=== PATIENT | female | born 1960 | race Caucasian/White ===

== ENCOUNTER → 2017-07-05 | Outpatient (CLI) | payer OTHER ==
[~2017-07-05] MED LIST: ACETAMINOPHEN-H1 TA2 PO; ALLERGY10 M1 PO; ALLOPURINOL300 MG PO; AMILORIDE HYDROC5 MG PO; AMITRIPTYLINE25 MG PO; ASCRIPTIN1 TA1 PO; BACTRIM DS 8001 TA1 PO; CEFAZOLIN2 GM/20 ML IV; CENTRUM SILVER1 EACH PO; CEPHALEXIN500 M1 PO; CO Q-1010 M2 PO; DOXYCYCLINE100 M3 PO; FLAGYL 500 MG500 MG PO; GLIPIZIDE ER2.5 MG PO; KEFLEX500 M1 PO; LEVAQUIN500 M1 IV; LIPITOR10 MG PO; MAREPA1200 MG PO; METFORMIN ER500 MG PO; METFORMIN1000 MG PO; METOPROLOL SUC100 M1 PO; NATURE'S BLE1000 MCG PO; TERBINAFINE250 MG; TRIAMTERENE/HCT1 TA2 PO
[2017-07-05 22:32] LABS: EST GLOM FILT AFRICAN AMERICAN > 60 ml/min
[2017-07-05 22:40] LABS: HEMOGLOBIN A1c 6.9 % (4.8-5.6)
== END | disposition home or self-care (01) ==
LOC: LAB 22:03
PROVIDERS: Podiatrist
DX: E11.40 Type 2 diabetes mellitus with diabetic neuropathy, unspecified (principal)

== ENCOUNTER → 2018-09-21 | Outpatient (CLI) | payer OTHER | END | disposition home or self-care (01) | LOC: WOUNDCARE 08:55 | DX: E11.621 Type 2 diabetes mellitus with foot ulcer (principal); L97.412 Non-pressure chronic ulcer of right heel and midfoot with fat layer exposed; L97.422 Non-pressure chronic ulcer of left heel and midfoot with fat layer exposed; L84 Corns and callosities; I10 Essential (primary) hypertension; I48.92 Unspecified atrial flutter; M10.9 Gout, unspecified; E78.00 Pure hypercholesterolemia, unspecified; Z90.710 Acquired absence of both cervix and uterus ==

== ENCOUNTER → 2018-09-28 | Outpatient (CLI) | payer OTHER | END | disposition home or self-care (01) | LOC: WOUNDCARE 04:31 | DX: E11.621 Type 2 diabetes mellitus with foot ulcer (principal); L97.412 Non-pressure chronic ulcer of right heel and midfoot with fat layer exposed; L97.422 Non-pressure chronic ulcer of left heel and midfoot with fat layer exposed; L84 Corns and callosities; I10 Essential (primary) hypertension; M10.9 Gout, unspecified; E78.00 Pure hypercholesterolemia, unspecified ==

== ENCOUNTER → 2018-10-05 | Outpatient (CLI) | payer OTHER | END | disposition home or self-care (01) | LOC: WOUNDCARE 01:50 | DX: E11.621 Type 2 diabetes mellitus with foot ulcer (principal); L97.412 Non-pressure chronic ulcer of right heel and midfoot with fat layer exposed; L97.422 Non-pressure chronic ulcer of left heel and midfoot with fat layer exposed; L84 Corns and callosities; I10 Essential (primary) hypertension; I48.92 Unspecified atrial flutter; E78.5 Hyperlipidemia, unspecified; M10.9 Gout, unspecified ==

== ENCOUNTER → 2018-10-12 | Outpatient (CLI) | payer OTHER | END | disposition home or self-care (01) | LOC: WOUNDCARE 04:10 → RESCLI 10:37 → WOUNDCARE 10:38 | DX: E11.621 Type 2 diabetes mellitus with foot ulcer (principal); L97.412 Non-pressure chronic ulcer of right heel and midfoot with fat layer exposed; L97.422 Non-pressure chronic ulcer of left heel and midfoot with fat layer exposed; L84 Corns and callosities; I10 Essential (primary) hypertension; I48.92 Unspecified atrial flutter; E78.00 Pure hypercholesterolemia, unspecified; M10.9 Gout, unspecified ==

== ENCOUNTER → 2018-10-26 | Outpatient (CLI) | payer OTHER | END | disposition home or self-care (01) | LOC: WOUNDCARE 04:43 | DX: E11.621 Type 2 diabetes mellitus with foot ulcer (principal); L97.422 Non-pressure chronic ulcer of left heel and midfoot with fat layer exposed; L97.412 Non-pressure chronic ulcer of right heel and midfoot with fat layer exposed; L84 Corns and callosities; I10 Essential (primary) hypertension; I48.92 Unspecified atrial flutter; E78.00 Pure hypercholesterolemia, unspecified; M10.9 Gout, unspecified ==

== ENCOUNTER → 2018-11-02 | Outpatient (CLI) | payer OTHER | END | disposition home or self-care (01) | LOC: WOUNDCARE 02:22 | DX: E11.621 Type 2 diabetes mellitus with foot ulcer (principal); L97.412 Non-pressure chronic ulcer of right heel and midfoot with fat layer exposed; L97.422 Non-pressure chronic ulcer of left heel and midfoot with fat layer exposed; L84 Corns and callosities; I10 Essential (primary) hypertension; I48.92 Unspecified atrial flutter; E78.00 Pure hypercholesterolemia, unspecified; M10.9 Gout, unspecified ==

== ENCOUNTER → 2018-11-09 | Outpatient (CLI) | payer OTHER | END | disposition home or self-care (01) | LOC: WOUNDCARE 02:30 | DX: E11.621 Type 2 diabetes mellitus with foot ulcer (principal); L97.422 Non-pressure chronic ulcer of left heel and midfoot with fat layer exposed; L97.412 Non-pressure chronic ulcer of right heel and midfoot with fat layer exposed; L84 Corns and callosities; I10 Essential (primary) hypertension; I48.92 Unspecified atrial flutter; E78.00 Pure hypercholesterolemia, unspecified; M10.9 Gout, unspecified ==

== ENCOUNTER → 2018-11-16 | Outpatient (CLI) | payer OTHER | END | disposition home or self-care (01) | LOC: WOUNDCARE 02:25 | DX: E11.621 Type 2 diabetes mellitus with foot ulcer (principal); L97.412 Non-pressure chronic ulcer of right heel and midfoot with fat layer exposed; L97.422 Non-pressure chronic ulcer of left heel and midfoot with fat layer exposed; L84 Corns and callosities; I10 Essential (primary) hypertension; I48.92 Unspecified atrial flutter; E78.00 Pure hypercholesterolemia, unspecified; M10.9 Gout, unspecified ==

== ENCOUNTER → 2018-11-30 | Outpatient (CLI) | payer OTHER | END | disposition home or self-care (01) | LOC: WOUNDCARE 01:44 | DX: E11.621 Type 2 diabetes mellitus with foot ulcer (principal); L97.412 Non-pressure chronic ulcer of right heel and midfoot with fat layer exposed; L97.422 Non-pressure chronic ulcer of left heel and midfoot with fat layer exposed; L84 Corns and callosities; I10 Essential (primary) hypertension; I48.92 Unspecified atrial flutter; E78.00 Pure hypercholesterolemia, unspecified; M10.9 Gout, unspecified ==

== ENCOUNTER → 2018-12-14 | Outpatient (CLI) | payer OTHER | END | disposition home or self-care (01) | LOC: WOUNDCARE 01:47 | DX: E11.621 Type 2 diabetes mellitus with foot ulcer (principal); L97.412 Non-pressure chronic ulcer of right heel and midfoot with fat layer exposed; L97.422 Non-pressure chronic ulcer of left heel and midfoot with fat layer exposed; L84 Corns and callosities; I10 Essential (primary) hypertension; I48.91 Unspecified atrial fibrillation; E78.00 Pure hypercholesterolemia, unspecified; M10.9 Gout, unspecified ==

== ENCOUNTER → 2018-12-21 | Outpatient (CLI) | payer OTHER | END | disposition home or self-care (01) | LOC: WOUNDCARE 03:01 | DX: E11.621 Type 2 diabetes mellitus with foot ulcer (principal); L97.412 Non-pressure chronic ulcer of right heel and midfoot with fat layer exposed; L97.422 Non-pressure chronic ulcer of left heel and midfoot with fat layer exposed; L84 Corns and callosities; I10 Essential (primary) hypertension; I48.92 Unspecified atrial flutter; E78.00 Pure hypercholesterolemia, unspecified; M10.9 Gout, unspecified ==

== ENCOUNTER → 2019-01-04 | Outpatient (CLI) | payer OTHER | END | disposition home or self-care (01) | LOC: WOUNDCARE 00:43 | DX: E11.621 Type 2 diabetes mellitus with foot ulcer (principal); L97.522 Non-pressure chronic ulcer of other part of left foot with fat layer exposed; I10 Essential (primary) hypertension; I48.92 Unspecified atrial flutter; M10.9 Gout, unspecified; E78.00 Pure hypercholesterolemia, unspecified ==

== ENCOUNTER → 2019-01-11 | Outpatient (CLI) | payer OTHER | END | disposition home or self-care (01) | LOC: WOUNDCARE 02:08 | DX: E11.621 Type 2 diabetes mellitus with foot ulcer (principal); L97.422 Non-pressure chronic ulcer of left heel and midfoot with fat layer exposed; L97.412 Non-pressure chronic ulcer of right heel and midfoot with fat layer exposed; M10.9 Gout, unspecified; I10 Essential (primary) hypertension; I48.92 Unspecified atrial flutter; E78.00 Pure hypercholesterolemia, unspecified ==

== ENCOUNTER → 2019-01-18 | Outpatient (CLI) | payer OTHER | END | disposition home or self-care (01) | LOC: WOUNDCARE 01:34 | DX: E11.621 Type 2 diabetes mellitus with foot ulcer (principal); L97.422 Non-pressure chronic ulcer of left heel and midfoot with fat layer exposed; L97.412 Non-pressure chronic ulcer of right heel and midfoot with fat layer exposed; I10 Essential (primary) hypertension; I48.92 Unspecified atrial flutter; E78.00 Pure hypercholesterolemia, unspecified; M10.9 Gout, unspecified ==

== ENCOUNTER → 2019-02-01 | Outpatient (CLI) | payer OTHER | END | disposition home or self-care (01) | LOC: WOUNDCARE 02:58 | DX: E11.621 Type 2 diabetes mellitus with foot ulcer (principal); L97.422 Non-pressure chronic ulcer of left heel and midfoot with fat layer exposed; L97.412 Non-pressure chronic ulcer of right heel and midfoot with fat layer exposed; M10.9 Gout, unspecified; I10 Essential (primary) hypertension; I48.92 Unspecified atrial flutter; E78.00 Pure hypercholesterolemia, unspecified ==

== ENCOUNTER → 2019-02-22 | Outpatient (CLI) | payer OTHER | END | disposition home or self-care (01) | LOC: WOUNDCARE 01:23 | DX: E11.621 Type 2 diabetes mellitus with foot ulcer (principal); L97.422 Non-pressure chronic ulcer of left heel and midfoot with fat layer exposed; L97.412 Non-pressure chronic ulcer of right heel and midfoot with fat layer exposed; L84 Corns and callosities; I10 Essential (primary) hypertension; E78.00 Pure hypercholesterolemia, unspecified; I48.91 Unspecified atrial fibrillation; M10.9 Gout, unspecified ==

== ENCOUNTER → 2019-03-15 | Outpatient (CLI) | payer OTHER | END | disposition home or self-care (01) | LOC: WOUNDCARE 03:05 | DX: E11.621 Type 2 diabetes mellitus with foot ulcer (principal); L97.422 Non-pressure chronic ulcer of left heel and midfoot with fat layer exposed; L97.522 Non-pressure chronic ulcer of other part of left foot with fat layer exposed; L97.412 Non-pressure chronic ulcer of right heel and midfoot with fat layer exposed; L84 Corns and callosities; I10 Essential (primary) hypertension; E78.00 Pure hypercholesterolemia, unspecified; M10.9 Gout, unspecified ==

== ENCOUNTER → 2019-03-22 | Outpatient (CLI) | payer OTHER | END | disposition home or self-care (01) | LOC: WOUNDCARE 01:36 | DX: E11.621 Type 2 diabetes mellitus with foot ulcer (principal); L97.412 Non-pressure chronic ulcer of right heel and midfoot with fat layer exposed; L97.422 Non-pressure chronic ulcer of left heel and midfoot with fat layer exposed; L84 Corns and callosities; I10 Essential (primary) hypertension; E78.00 Pure hypercholesterolemia, unspecified; M10.9 Gout, unspecified ==

== ENCOUNTER → 2019-04-21 | Outpatient (CLI) | payer OTHER | END | disposition home or self-care (01) | LOC: WOUNDCARE 03:00 | DX: E11.621 Type 2 diabetes mellitus with foot ulcer (principal); L97.422 Non-pressure chronic ulcer of left heel and midfoot with fat layer exposed; L97.412 Non-pressure chronic ulcer of right heel and midfoot with fat layer exposed; M10.9 Gout, unspecified; I10 Essential (primary) hypertension; I48.92 Unspecified atrial flutter; E78.00 Pure hypercholesterolemia, unspecified ==

== ENCOUNTER → 2019-04-28 | Outpatient (CLI) | payer OTHER | END | disposition home or self-care (01) | LOC: RESCLI 04-27 15:16 → WOUNDCARE 00:01 → RESCLI 15:19 | DX: E11.621 Type 2 diabetes mellitus with foot ulcer (principal); L97.522 Non-pressure chronic ulcer of other part of left foot with fat layer exposed; L97.412 Non-pressure chronic ulcer of right heel and midfoot with fat layer exposed; L97.422 Non-pressure chronic ulcer of left heel and midfoot with fat layer exposed; M10.9 Gout, unspecified; I10 Essential (primary) hypertension; I48.92 Unspecified atrial flutter; E78.00 Pure hypercholesterolemia, unspecified ==

== ENCOUNTER → 2019-05-05 | Outpatient (CLI) | payer OTHER | END | disposition home or self-care (01) | LOC: WOUNDCARE 00:15 | DX: E11.621 Type 2 diabetes mellitus with foot ulcer (principal); L97.522 Non-pressure chronic ulcer of other part of left foot with fat layer exposed; L97.422 Non-pressure chronic ulcer of left heel and midfoot with fat layer exposed; L97.412 Non-pressure chronic ulcer of right heel and midfoot with fat layer exposed; M10.9 Gout, unspecified; I10 Essential (primary) hypertension; I48.92 Unspecified atrial flutter; E78.00 Pure hypercholesterolemia, unspecified ==

== ENCOUNTER → 2020-05-13 | Outpatient (CLI) | payer OTHER | END | disposition home or self-care (01) | LOC: US 07:00 | DX: E11.621 Type 2 diabetes mellitus with foot ulcer (principal); L97.422 Non-pressure chronic ulcer of left heel and midfoot with fat layer exposed ==

== ENCOUNTER → 2020-09-18 | Outpatient (CLI) | payer OTHER | END | disposition home or self-care (01) | LOC: COVID19 10:35 | PROVIDERS: ATTEND Family Medicine | DX: R05 Cough (principal); B34.9 Viral infection, unspecified; Z20.828 Contact with and (suspected) exposure to other viral communicable diseases ==

== ENCOUNTER 2021-01-26 19:14 | Emergency (ER) | payer OTHER ==
[~2021-01-26] VITALS: Ht 170.1 cm; Wt 108.9 kg
[2021-01-26] MEDS ORDERED: NAPROXEN250 MG PO (20:03)
== END 2021-01-26 20:36 | disposition home or self-care (01) ==
LOC: ED 19:14
DX: S00.83XA Contusion of other part of head, initial encounter (principal); E11.9 Type 2 diabetes mellitus without complications; I10 Essential (primary) hypertension; E78.00 Pure hypercholesterolemia, unspecified; Z79.82 Long term (current) use of aspirin; Z91.041 Radiographic dye allergy status; Z91.048 Other nonmedicinal substance allergy status; Z79.2 Long term (current) use of antibiotics; Z79.899 Other long term (current) drug therapy; W19.XXXA Unspecified fall, initial encounter; Y93.89 Activity, other specified; Y92.89 Other specified places as the place of occurrence of the external cause; Y99.8 Other external cause status

== ENCOUNTER 2021-02-19 11:27 | Emergency (ER) | payer OTHER ==
[~2021-02-19] VITALS: Wt 108.9 kg
[~2021-02-19 11:27] MED LIST changes: +NAPROXEN250 MG PO
[2021-02-19] MEDS ORDERED: CEPHALEXIN500 M1 PO (13:53)
[2021-02-19] MEDS ORDERED: POLYSPORIN OINT15 GM T (13:53)
== END 2021-02-19 14:05 | disposition home or self-care (01) ==
LOC: ED 11:27
DX: S51.811A Laceration without foreign body of right forearm, initial encounter (principal); E11.40 Type 2 diabetes mellitus with diabetic neuropathy, unspecified; E78.5 Hyperlipidemia, unspecified; I10 Essential (primary) hypertension; E66.01 Morbid (severe) obesity due to excess calories; Z90.711 Acquired absence of uterus with remaining cervical stump; Z90.89 Acquired absence of other organs; Z91.041 Radiographic dye allergy status; Z91.048 Other nonmedicinal substance allergy status; Z79.2 Long term (current) use of antibiotics; Z79.899 Other long term (current) drug therapy; W01.198A Fall on same level from slipping, tripping and stumbling with subsequent striking against other object, initial encounter; Y93.89 Activity, other specified; Y92.89 Other specified places as the place of occurrence of the external cause; Y99.8 Other external cause status

== ENCOUNTER → 2021-03-06 | Outpatient (CLI) | payer OTHER ==
[~2021-03-06] MED LIST changes: +POLYSPORIN OINT15 GM T
== END ==
LOC: WOUNDCARE 00:31
PROVIDERS: ATTEND Nurse Practitioner
DX: E11.621 Type 2 diabetes mellitus with foot ulcer (principal); L97.422 Non-pressure chronic ulcer of left heel and midfoot with fat layer exposed; L97.522 Non-pressure chronic ulcer of other part of left foot with fat layer exposed; I10 Essential (primary) hypertension; M10.9 Gout, unspecified; I48.92 Unspecified atrial flutter; E78.00 Pure hypercholesterolemia, unspecified; Z90.710 Acquired absence of both cervix and uterus

== ENCOUNTER → 2021-05-19 | Outpatient (CLI) | payer OTHER | LOC: WOUNDCARE 01:05 | PROVIDERS: ATTEND Nurse Practitioner | DX: E11.621 Type 2 diabetes mellitus with foot ulcer (principal); L97.422 Non-pressure chronic ulcer of left heel and midfoot with fat layer exposed; L97.522 Non-pressure chronic ulcer of other part of left foot with fat layer exposed; L97.512 Non-pressure chronic ulcer of other part of right foot with fat layer exposed; I10 Essential (primary) hypertension; M10.9 Gout, unspecified; I48.92 Unspecified atrial flutter; E78.00 Pure hypercholesterolemia, unspecified; Z90.710 Acquired absence of both cervix and uterus; Z79.82 Long term (current) use of aspirin; Z79.899 Other long term (current) drug therapy; Z90.49 Acquired absence of other specified parts of digestive tract ==

== ENCOUNTER → 2021-06-30 | Outpatient (CLI) | payer OTHER | LOC: WOUNDCARE 09:04 | PROVIDERS: ATTEND Nurse Practitioner | DX: E11.621 Type 2 diabetes mellitus with foot ulcer (principal); L97.522 Non-pressure chronic ulcer of other part of left foot with fat layer exposed; L97.512 Non-pressure chronic ulcer of other part of right foot with fat layer exposed; I10 Essential (primary) hypertension; M10.9 Gout, unspecified; I48.92 Unspecified atrial flutter; E78.00 Pure hypercholesterolemia, unspecified; Z90.710 Acquired absence of both cervix and uterus; Z79.82 Long term (current) use of aspirin; Z79.899 Other long term (current) drug therapy; Z90.49 Acquired absence of other specified parts of digestive tract ==

== ENCOUNTER → 2021-07-11 | Outpatient (CLI) | payer OTHER | LOC: WOUNDCARE 00:44 | PROVIDERS: ATTEND Nurse Practitioner | DX: E11.621 Type 2 diabetes mellitus with foot ulcer (principal); L97.522 Non-pressure chronic ulcer of other part of left foot with fat layer exposed; L97.512 Non-pressure chronic ulcer of other part of right foot with fat layer exposed; I10 Essential (primary) hypertension; M10.9 Gout, unspecified; I48.92 Unspecified atrial flutter; E78.00 Pure hypercholesterolemia, unspecified; Z90.710 Acquired absence of both cervix and uterus; Z79.82 Long term (current) use of aspirin; Z79.899 Other long term (current) drug therapy; Z90.49 Acquired absence of other specified parts of digestive tract ==

== ENCOUNTER → 2021-07-25 | Outpatient (CLI) | payer OTHER | LOC: WOUNDCARE 02:46 | PROVIDERS: ATTEND Nurse Practitioner | DX: E11.621 Type 2 diabetes mellitus with foot ulcer (principal); L97.522 Non-pressure chronic ulcer of other part of left foot with fat layer exposed; L97.512 Non-pressure chronic ulcer of other part of right foot with fat layer exposed; I10 Essential (primary) hypertension; M10.9 Gout, unspecified; E78.00 Pure hypercholesterolemia, unspecified; Z90.710 Acquired absence of both cervix and uterus; Z79.82 Long term (current) use of aspirin; Z79.899 Other long term (current) drug therapy; Z90.49 Acquired absence of other specified parts of digestive tract ==

== ENCOUNTER → 2021-08-11 | Outpatient (CLI) | payer OTHER | LOC: WOUNDCARE 11:01 | PROVIDERS: ATTEND Nurse Practitioner | DX: E11.621 Type 2 diabetes mellitus with foot ulcer (principal); L97.522 Non-pressure chronic ulcer of other part of left foot with fat layer exposed; L97.512 Non-pressure chronic ulcer of other part of right foot with fat layer exposed; I10 Essential (primary) hypertension; M10.9 Gout, unspecified; E78.00 Pure hypercholesterolemia, unspecified; Z90.710 Acquired absence of both cervix and uterus; Z79.82 Long term (current) use of aspirin; Z79.899 Other long term (current) drug therapy; Z90.49 Acquired absence of other specified parts of digestive tract ==

== ENCOUNTER → 2021-10-10 | Outpatient (CLI) | payer OTHER | LOC: WOUNDCARE 00:01 → EDSTATUS 16:43 | PROVIDERS: ATTEND Nurse Practitioner Family | DX: E11.621 Type 2 diabetes mellitus with foot ulcer (principal); L97.511 Non-pressure chronic ulcer of other part of right foot limited to breakdown of skin; L97.521 Non-pressure chronic ulcer of other part of left foot limited to breakdown of skin; I10 Essential (primary) hypertension; M10.9 Gout, unspecified; E78.00 Pure hypercholesterolemia, unspecified; Z90.710 Acquired absence of both cervix and uterus; Z79.82 Long term (current) use of aspirin; Z79.899 Other long term (current) drug therapy; Z90.49 Acquired absence of other specified parts of digestive tract; Z79.84 Long term (current) use of oral hypoglycemic drugs ==

== ENCOUNTER → 2021-10-17 | Outpatient (CLI) | payer OTHER | LOC: WOUNDCARE 00:51 | PROVIDERS: ATTEND Nurse Practitioner Family | DX: E11.621 Type 2 diabetes mellitus with foot ulcer (principal); L97.522 Non-pressure chronic ulcer of other part of left foot with fat layer exposed; L97.512 Non-pressure chronic ulcer of other part of right foot with fat layer exposed; I10 Essential (primary) hypertension; M10.9 Gout, unspecified; E78.00 Pure hypercholesterolemia, unspecified; Z90.710 Acquired absence of both cervix and uterus; Z79.82 Long term (current) use of aspirin; Z79.899 Other long term (current) drug therapy; Z90.49 Acquired absence of other specified parts of digestive tract ==

== ENCOUNTER → 2021-10-28 | Outpatient (CLI) | payer OTHER | LOC: WOUNDCARE 00:48 | PROVIDERS: ATTEND Surgery | DX: E11.621 Type 2 diabetes mellitus with foot ulcer (principal); L97.512 Non-pressure chronic ulcer of other part of right foot with fat layer exposed; L97.522 Non-pressure chronic ulcer of other part of left foot with fat layer exposed; L84 Corns and callosities; M10.9 Gout, unspecified; E78.00 Pure hypercholesterolemia, unspecified; Z90.710 Acquired absence of both cervix and uterus; Z79.82 Long term (current) use of aspirin; Z79.899 Other long term (current) drug therapy; Z90.49 Acquired absence of other specified parts of digestive tract ==

== ENCOUNTER → 2021-11-07 | Outpatient (CLI) | payer OTHER | LOC: WOUNDCARE 00:52 | PROVIDERS: ATTEND Nurse Practitioner Family | DX: E11.621 Type 2 diabetes mellitus with foot ulcer (principal); L97.511 Non-pressure chronic ulcer of other part of right foot limited to breakdown of skin; L97.521 Non-pressure chronic ulcer of other part of left foot limited to breakdown of skin; L84 Corns and callosities; M79.2 Neuralgia and neuritis, unspecified; M10.9 Gout, unspecified; E78.00 Pure hypercholesterolemia, unspecified; Z90.710 Acquired absence of both cervix and uterus; Z79.82 Long term (current) use of aspirin; Z79.899 Other long term (current) drug therapy; Z90.49 Acquired absence of other specified parts of digestive tract ==

== ENCOUNTER → 2021-11-14 | Outpatient (CLI) | payer OTHER | LOC: WOUNDCARE 00:57 | PROVIDERS: ATTEND Nurse Practitioner Family | DX: E11.621 Type 2 diabetes mellitus with foot ulcer (principal); L97.511 Non-pressure chronic ulcer of other part of right foot limited to breakdown of skin; L97.521 Non-pressure chronic ulcer of other part of left foot limited to breakdown of skin; L84 Corns and callosities; M79.2 Neuralgia and neuritis, unspecified; M10.9 Gout, unspecified; E78.00 Pure hypercholesterolemia, unspecified; Z90.710 Acquired absence of both cervix and uterus; Z79.82 Long term (current) use of aspirin; Z79.899 Other long term (current) drug therapy; Z90.49 Acquired absence of other specified parts of digestive tract ==

== ENCOUNTER → 2021-11-26 | Outpatient (CLI) | payer OTHER | LOC: WOUNDCARE 10:55 | PROVIDERS: ATTEND Nurse Practitioner Family | DX: E11.621 Type 2 diabetes mellitus with foot ulcer (principal); L97.512 Non-pressure chronic ulcer of other part of right foot with fat layer exposed; L97.522 Non-pressure chronic ulcer of other part of left foot with fat layer exposed; L84 Corns and callosities; M79.2 Neuralgia and neuritis, unspecified; M10.9 Gout, unspecified; E78.00 Pure hypercholesterolemia, unspecified; Z90.710 Acquired absence of both cervix and uterus; Z79.82 Long term (current) use of aspirin; Z79.899 Other long term (current) drug therapy; Z90.49 Acquired absence of other specified parts of digestive tract ==

== ENCOUNTER → 2021-12-05 | Outpatient (CLI) | payer OTHER | LOC: WOUNDCARE 06:10 | PROVIDERS: ATTEND Nurse Practitioner Family | DX: E11.621 Type 2 diabetes mellitus with foot ulcer (principal); L97.512 Non-pressure chronic ulcer of other part of right foot with fat layer exposed; L97.522 Non-pressure chronic ulcer of other part of left foot with fat layer exposed; L03.032 Cellulitis of left toe; L84 Corns and callosities; E78.00 Pure hypercholesterolemia, unspecified; I10 Essential (primary) hypertension; M79.2 Neuralgia and neuritis, unspecified; M10.9 Gout, unspecified; Z90.710 Acquired absence of both cervix and uterus ==

== ENCOUNTER → 2021-12-07 | Outpatient (CLI) | payer OTHER | END | disposition home or self-care (01) | LOC: RAD 17:06 | PROVIDERS: ATTEND Nurse Practitioner Family | DX: M19.072 Primary osteoarthritis, left ankle and foot (principal); L97.522 Non-pressure chronic ulcer of other part of left foot with fat layer exposed; L03.032 Cellulitis of left toe; M86.9 Osteomyelitis, unspecified ==

== ENCOUNTER → 2021-12-12 | Outpatient (CLI) | payer OTHER | LOC: WOUNDCARE 02:22 | PROVIDERS: ATTEND Nurse Practitioner Family | DX: E11.621 Type 2 diabetes mellitus with foot ulcer (principal); L97.512 Non-pressure chronic ulcer of other part of right foot with fat layer exposed; L97.522 Non-pressure chronic ulcer of other part of left foot with fat layer exposed; L03.032 Cellulitis of left toe; L84 Corns and callosities; E78.00 Pure hypercholesterolemia, unspecified; I10 Essential (primary) hypertension; M79.2 Neuralgia and neuritis, unspecified; M10.9 Gout, unspecified; Z90.710 Acquired absence of both cervix and uterus ==

== ENCOUNTER → 2021-12-16 | Outpatient (CLI) | payer OTHER | LOC: WOUNDCARE 00:01 | PROVIDERS: ATTEND Surgery | DX: E11.621 Type 2 diabetes mellitus with foot ulcer (principal); L97.512 Non-pressure chronic ulcer of other part of right foot with fat layer exposed; L97.522 Non-pressure chronic ulcer of other part of left foot with fat layer exposed; L03.032 Cellulitis of left toe; L84 Corns and callosities; E78.00 Pure hypercholesterolemia, unspecified; I10 Essential (primary) hypertension; M79.2 Neuralgia and neuritis, unspecified; M10.9 Gout, unspecified; Z90.710 Acquired absence of both cervix and uterus ==

== ENCOUNTER → 2021-12-26 | Outpatient (CLI) | payer OTHER | LOC: WOUNDCARE 00:44 | PROVIDERS: ATTEND Nurse Practitioner Family | DX: E11.621 Type 2 diabetes mellitus with foot ulcer (principal); L97.512 Non-pressure chronic ulcer of other part of right foot with fat layer exposed; L97.522 Non-pressure chronic ulcer of other part of left foot with fat layer exposed; L03.032 Cellulitis of left toe; L84 Corns and callosities; E78.00 Pure hypercholesterolemia, unspecified; I10 Essential (primary) hypertension; M79.2 Neuralgia and neuritis, unspecified; M10.9 Gout, unspecified ==

== ENCOUNTER → 2022-01-07 | Outpatient (CLI) | payer OTHER | LOC: WOUNDCARE 01:03 | PROVIDERS: ATTEND Nurse Practitioner Family | DX: E11.621 Type 2 diabetes mellitus with foot ulcer (principal); L97.512 Non-pressure chronic ulcer of other part of right foot with fat layer exposed; L97.522 Non-pressure chronic ulcer of other part of left foot with fat layer exposed; L03.032 Cellulitis of left toe; L84 Corns and callosities; E78.00 Pure hypercholesterolemia, unspecified; I10 Essential (primary) hypertension; M79.2 Neuralgia and neuritis, unspecified; M10.9 Gout, unspecified ==

== ENCOUNTER → 2022-01-20 | Outpatient (CLI) | payer OTHER | LOC: WOUNDCARE 01:54 | PROVIDERS: ATTEND Nurse Practitioner Primary Care | DX: E11.621 Type 2 diabetes mellitus with foot ulcer (principal); L97.522 Non-pressure chronic ulcer of other part of left foot with fat layer exposed; L97.512 Non-pressure chronic ulcer of other part of right foot with fat layer exposed; L03.032 Cellulitis of left toe; L84 Corns and callosities; E78.00 Pure hypercholesterolemia, unspecified; I10 Essential (primary) hypertension; M79.2 Neuralgia and neuritis, unspecified; M10.9 Gout, unspecified; Z90.710 Acquired absence of both cervix and uterus ==

== ENCOUNTER → 2022-01-30 | Outpatient (CLI) | payer OTHER ==
[~2022-01-30] MED LIST changes: +ASPIRIN ADULT L81 M1 PO; +FLONASE ALLERG9.9 ML NAS
== END ==
LOC: WOUNDCARE 03:27
PROVIDERS: ATTEND Nurse Practitioner Family
DX: E11.621 Type 2 diabetes mellitus with foot ulcer (principal); L97.522 Non-pressure chronic ulcer of other part of left foot with fat layer exposed; L97.512 Non-pressure chronic ulcer of other part of right foot with fat layer exposed; L03.032 Cellulitis of left toe; L84 Corns and callosities; M86.18 Other acute osteomyelitis, other site; E78.00 Pure hypercholesterolemia, unspecified; I10 Essential (primary) hypertension; M79.2 Neuralgia and neuritis, unspecified; M10.9 Gout, unspecified; Z90.710 Acquired absence of both cervix and uterus

== ENCOUNTER → 2022-02-12 | Outpatient (CLI) | payer OTHER | LOC: WOUNDCARE 00:47 | PROVIDERS: ATTEND Nurse Practitioner Family | DX: E11.621 Type 2 diabetes mellitus with foot ulcer (principal); L97.512 Non-pressure chronic ulcer of other part of right foot with fat layer exposed; L97.522 Non-pressure chronic ulcer of other part of left foot with fat layer exposed; L03.032 Cellulitis of left toe; L84 Corns and callosities; E78.00 Pure hypercholesterolemia, unspecified; I10 Essential (primary) hypertension; M79.2 Neuralgia and neuritis, unspecified; M86.18 Other acute osteomyelitis, other site; M10.9 Gout, unspecified; Z90.710 Acquired absence of both cervix and uterus ==

== ENCOUNTER → 2022-02-27 | Outpatient (CLI) | payer OTHER ==
[2022-02-27 10:58] LABS: BUN 10 mg/dl (7-24); CHLORIDE 109 mmol/L (98-107); CREATININE 0.68 mg/dL (0.55-1.02); PREALBUMIN 26 mg/dl (20-40); SODIUM 141 mmol/L (136-145)
== END | disposition home or self-care (01) ==
LOC: WOUNDCARE 03:53 → LAB 03:53 → WOUNDCARE 08:32
PROVIDERS: ATTEND Nurse Practitioner Family
DX: E11.621 Type 2 diabetes mellitus with foot ulcer (principal); L97.512 Non-pressure chronic ulcer of other part of right foot with fat layer exposed; L97.522 Non-pressure chronic ulcer of other part of left foot with fat layer exposed

== ENCOUNTER → 2022-03-05 | Outpatient (CLI) | payer OTHER | END | disposition home or self-care (01) | LOC: WOUNDCARE 02:27 | PROVIDERS: ATTEND Nurse Practitioner Family | DX: E11.621 Type 2 diabetes mellitus with foot ulcer (principal); L97.512 Non-pressure chronic ulcer of other part of right foot with fat layer exposed; L97.522 Non-pressure chronic ulcer of other part of left foot with fat layer exposed; L03.032 Cellulitis of left toe; L84 Corns and callosities; E11.69 Type 2 diabetes mellitus with other specified complication; M86.18 Other acute osteomyelitis, other site; E78.00 Pure hypercholesterolemia, unspecified; I10 Essential (primary) hypertension; M79.2 Neuralgia and neuritis, unspecified; M10.9 Gout, unspecified; Z90.710 Acquired absence of both cervix and uterus ==

== ENCOUNTER → 2022-03-12 | Outpatient (CLI) | payer OTHER | END | disposition home or self-care (01) | LOC: WOUNDCARE 01:05 | PROVIDERS: ATTEND Nurse Practitioner Family | DX: E11.621 Type 2 diabetes mellitus with foot ulcer (principal); L97.522 Non-pressure chronic ulcer of other part of left foot with fat layer exposed; L97.512 Non-pressure chronic ulcer of other part of right foot with fat layer exposed; L03.032 Cellulitis of left toe; L84 Corns and callosities; E11.69 Type 2 diabetes mellitus with other specified complication; M86.18 Other acute osteomyelitis, other site; M79.2 Neuralgia and neuritis, unspecified; M10.9 Gout, unspecified; E78.00 Pure hypercholesterolemia, unspecified; I10 Essential (primary) hypertension; Z90.710 Acquired absence of both cervix and uterus ==

== ENCOUNTER → 2022-03-19 | Outpatient (CLI) | payer OTHER | END | disposition home or self-care (01) | LOC: WOUNDCARE 00:22 | PROVIDERS: ATTEND Nurse Practitioner Family | DX: E11.621 Type 2 diabetes mellitus with foot ulcer (principal); L97.522 Non-pressure chronic ulcer of other part of left foot with fat layer exposed; L97.512 Non-pressure chronic ulcer of other part of right foot with fat layer exposed; L84 Corns and callosities; L03.032 Cellulitis of left toe; M79.2 Neuralgia and neuritis, unspecified; E11.69 Type 2 diabetes mellitus with other specified complication; M86.18 Other acute osteomyelitis, other site; E78.00 Pure hypercholesterolemia, unspecified; I10 Essential (primary) hypertension; M10.9 Gout, unspecified; Z90.710 Acquired absence of both cervix and uterus ==

== ENCOUNTER → 2022-03-26 | Outpatient (CLI) | payer OTHER | END | disposition home or self-care (01) | LOC: WOUNDCARE 00:19 | PROVIDERS: ATTEND Nurse Practitioner Family | DX: E11.621 Type 2 diabetes mellitus with foot ulcer (principal); L97.522 Non-pressure chronic ulcer of other part of left foot with fat layer exposed; L84 Corns and callosities; E11.69 Type 2 diabetes mellitus with other specified complication; M86.18 Other acute osteomyelitis, other site; E78.00 Pure hypercholesterolemia, unspecified; I10 Essential (primary) hypertension; M79.2 Neuralgia and neuritis, unspecified; M10.9 Gout, unspecified; Z90.710 Acquired absence of both cervix and uterus ==

== ENCOUNTER → 2022-04-02 | Outpatient (CLI) | payer OTHER | END | disposition home or self-care (01) | LOC: WOUNDCARE 00:12 | PROVIDERS: ATTEND Nurse Practitioner Family | DX: E11.621 Type 2 diabetes mellitus with foot ulcer (principal); L97.522 Non-pressure chronic ulcer of other part of left foot with fat layer exposed; L84 Corns and callosities; E11.69 Type 2 diabetes mellitus with other specified complication; M86.18 Other acute osteomyelitis, other site; E78.00 Pure hypercholesterolemia, unspecified; I10 Essential (primary) hypertension; M79.2 Neuralgia and neuritis, unspecified; M10.9 Gout, unspecified; Z90.710 Acquired absence of both cervix and uterus ==

== ENCOUNTER → 2022-04-09 | Outpatient (CLI) | payer OTHER | END | disposition home or self-care (01) | LOC: WOUNDCARE 01:11 | PROVIDERS: ATTEND Nurse Practitioner Family | DX: E11.621 Type 2 diabetes mellitus with foot ulcer (principal); L97.522 Non-pressure chronic ulcer of other part of left foot with fat layer exposed; L84 Corns and callosities; M79.2 Neuralgia and neuritis, unspecified; E11.69 Type 2 diabetes mellitus with other specified complication; M86.18 Other acute osteomyelitis, other site; E78.00 Pure hypercholesterolemia, unspecified; I10 Essential (primary) hypertension; M10.9 Gout, unspecified; Z90.710 Acquired absence of both cervix and uterus ==

== ENCOUNTER → 2022-04-23 | Outpatient (CLI) | payer OTHER | LOC: WOUNDCARE 01:52 | PROVIDERS: ATTEND Nurse Practitioner Family | DX: E11.621 Type 2 diabetes mellitus with foot ulcer (principal); L97.522 Non-pressure chronic ulcer of other part of left foot with fat layer exposed; L84 Corns and callosities; E11.69 Type 2 diabetes mellitus with other specified complication; M86.18 Other acute osteomyelitis, other site; E78.00 Pure hypercholesterolemia, unspecified; I10 Essential (primary) hypertension; M79.2 Neuralgia and neuritis, unspecified; M10.9 Gout, unspecified; Z90.710 Acquired absence of both cervix and uterus ==

== ENCOUNTER → 2022-04-30 | Outpatient (CLI) | payer OTHER | END | disposition home or self-care (01) | LOC: WOUNDCARE 03:25 | PROVIDERS: ATTEND Nurse Practitioner Family | DX: E11.621 Type 2 diabetes mellitus with foot ulcer (principal); L97.522 Non-pressure chronic ulcer of other part of left foot with fat layer exposed; E11.69 Type 2 diabetes mellitus with other specified complication; M86.18 Other acute osteomyelitis, other site; E78.00 Pure hypercholesterolemia, unspecified; I10 Essential (primary) hypertension; M79.2 Neuralgia and neuritis, unspecified; M10.9 Gout, unspecified; Z90.710 Acquired absence of both cervix and uterus ==

== ENCOUNTER → 2022-05-07 | Outpatient (CLI) | payer OTHER | END | disposition home or self-care (01) | LOC: WOUNDCARE 01:46 | PROVIDERS: ATTEND Nurse Practitioner Family | DX: E11.621 Type 2 diabetes mellitus with foot ulcer (principal); L97.522 Non-pressure chronic ulcer of other part of left foot with fat layer exposed; L84 Corns and callosities; E11.69 Type 2 diabetes mellitus with other specified complication; M86.18 Other acute osteomyelitis, other site; E78.00 Pure hypercholesterolemia, unspecified; I10 Essential (primary) hypertension; M79.2 Neuralgia and neuritis, unspecified; M10.9 Gout, unspecified; Z90.710 Acquired absence of both cervix and uterus ==

== ENCOUNTER → 2022-05-14 | Outpatient (CLI) | payer OTHER | END | disposition home or self-care (01) | LOC: WOUNDCARE 01:46 | PROVIDERS: ATTEND Nurse Practitioner Family | DX: E11.621 Type 2 diabetes mellitus with foot ulcer (principal); L97.522 Non-pressure chronic ulcer of other part of left foot with fat layer exposed; L84 Corns and callosities; E11.69 Type 2 diabetes mellitus with other specified complication; M86.18 Other acute osteomyelitis, other site; M79.2 Neuralgia and neuritis, unspecified; M10.9 Gout, unspecified; I10 Essential (primary) hypertension; E78.00 Pure hypercholesterolemia, unspecified; Z90.710 Acquired absence of both cervix and uterus ==

== ENCOUNTER → 2022-05-21 | Outpatient (CLI) | payer OTHER | LOC: WOUNDCARE 02:56 | PROVIDERS: ATTEND Nurse Practitioner Family | DX: E11.621 Type 2 diabetes mellitus with foot ulcer (principal); L97.522 Non-pressure chronic ulcer of other part of left foot with fat layer exposed; L84 Corns and callosities; E11.69 Type 2 diabetes mellitus with other specified complication; M86.18 Other acute osteomyelitis, other site; E78.00 Pure hypercholesterolemia, unspecified; I10 Essential (primary) hypertension; M79.2 Neuralgia and neuritis, unspecified; M10.9 Gout, unspecified; Z90.710 Acquired absence of both cervix and uterus ==

== ENCOUNTER → 2022-06-05 | Outpatient (CLI) | payer OTHER | END | disposition home or self-care (01) | LOC: WOUNDCARE 01:57 | PROVIDERS: ATTEND Nurse Practitioner Family | DX: E11.621 Type 2 diabetes mellitus with foot ulcer (principal); L97.522 Non-pressure chronic ulcer of other part of left foot with fat layer exposed; E11.69 Type 2 diabetes mellitus with other specified complication; M86.18 Other acute osteomyelitis, other site; L84 Corns and callosities; M79.2 Neuralgia and neuritis, unspecified; M10.9 Gout, unspecified; E78.00 Pure hypercholesterolemia, unspecified; I10 Essential (primary) hypertension; Z90.710 Acquired absence of both cervix and uterus ==

== ENCOUNTER → 2022-06-12 | Outpatient (CLI) | payer OTHER | END | disposition home or self-care (01) | LOC: WOUNDCARE 01:29 | PROVIDERS: ATTEND Nurse Practitioner Family | DX: E11.621 Type 2 diabetes mellitus with foot ulcer (principal); L97.522 Non-pressure chronic ulcer of other part of left foot with fat layer exposed; E11.69 Type 2 diabetes mellitus with other specified complication; M86.18 Other acute osteomyelitis, other site; L84 Corns and callosities; M79.2 Neuralgia and neuritis, unspecified; M10.9 Gout, unspecified; E78.00 Pure hypercholesterolemia, unspecified; I10 Essential (primary) hypertension; Z90.710 Acquired absence of both cervix and uterus ==

== ENCOUNTER → 2022-06-24 | Outpatient (CLI) | payer OTHER | END | disposition home or self-care (01) | LOC: WOUNDCARE 01:23 | PROVIDERS: ATTEND Nurse Practitioner Family | DX: E11.621 Type 2 diabetes mellitus with foot ulcer (principal); L97.522 Non-pressure chronic ulcer of other part of left foot with fat layer exposed; E11.69 Type 2 diabetes mellitus with other specified complication; M86.18 Other acute osteomyelitis, other site; E78.00 Pure hypercholesterolemia, unspecified; I10 Essential (primary) hypertension; M79.2 Neuralgia and neuritis, unspecified; M10.9 Gout, unspecified; Z90.710 Acquired absence of both cervix and uterus ==

== ENCOUNTER → 2022-07-03 | Outpatient (CLI) | payer OTHER | END | disposition home or self-care (01) | LOC: WOUNDCARE 00:42 | PROVIDERS: ATTEND Nurse Practitioner Family | DX: E11.621 Type 2 diabetes mellitus with foot ulcer (principal); L97.522 Non-pressure chronic ulcer of other part of left foot with fat layer exposed; E11.69 Type 2 diabetes mellitus with other specified complication; M86.18 Other acute osteomyelitis, other site; E78.00 Pure hypercholesterolemia, unspecified; I10 Essential (primary) hypertension; M79.2 Neuralgia and neuritis, unspecified; M10.9 Gout, unspecified; Z90.710 Acquired absence of both cervix and uterus ==

== ENCOUNTER → 2022-07-09 | Outpatient (CLI) | payer OTHER | END | disposition home or self-care (01) | LOC: WOUNDCARE 01:42 | PROVIDERS: ATTEND Nurse Practitioner Family | DX: E11.621 Type 2 diabetes mellitus with foot ulcer (principal); L97.522 Non-pressure chronic ulcer of other part of left foot with fat layer exposed; L84 Corns and callosities; E11.69 Type 2 diabetes mellitus with other specified complication; M86.18 Other acute osteomyelitis, other site; E78.00 Pure hypercholesterolemia, unspecified; I10 Essential (primary) hypertension; M79.2 Neuralgia and neuritis, unspecified; M10.9 Gout, unspecified; Z90.710 Acquired absence of both cervix and uterus ==

== ENCOUNTER → 2022-07-16 | Outpatient (CLI) | payer OTHER | END | disposition home or self-care (01) | LOC: WOUNDCARE 01:00 | PROVIDERS: ATTEND Nurse Practitioner Family | DX: E11.621 Type 2 diabetes mellitus with foot ulcer (principal); L97.522 Non-pressure chronic ulcer of other part of left foot with fat layer exposed; L84 Corns and callosities; M79.2 Neuralgia and neuritis, unspecified; E11.69 Type 2 diabetes mellitus with other specified complication; M86.18 Other acute osteomyelitis, other site; E78.00 Pure hypercholesterolemia, unspecified; I10 Essential (primary) hypertension; M10.9 Gout, unspecified; Z90.710 Acquired absence of both cervix and uterus ==

== ENCOUNTER → 2022-07-23 | Outpatient (CLI) | payer OTHER | END | disposition home or self-care (01) | LOC: WOUNDCARE 00:22 | PROVIDERS: ATTEND Nurse Practitioner Family | DX: E11.621 Type 2 diabetes mellitus with foot ulcer (principal); L97.522 Non-pressure chronic ulcer of other part of left foot with fat layer exposed; L84 Corns and callosities; E11.69 Type 2 diabetes mellitus with other specified complication; M86.18 Other acute osteomyelitis, other site; E78.00 Pure hypercholesterolemia, unspecified; I10 Essential (primary) hypertension; M79.2 Neuralgia and neuritis, unspecified; M10.9 Gout, unspecified; Z90.710 Acquired absence of both cervix and uterus ==

== ENCOUNTER → 2022-07-30 | Outpatient (CLI) | payer OTHER | END | disposition home or self-care (01) | LOC: WOUNDCARE 00:55 | PROVIDERS: ATTEND Nurse Practitioner Family | DX: E11.621 Type 2 diabetes mellitus with foot ulcer (principal); L97.522 Non-pressure chronic ulcer of other part of left foot with fat layer exposed; L84 Corns and callosities; E11.69 Type 2 diabetes mellitus with other specified complication; M86.18 Other acute osteomyelitis, other site; M79.2 Neuralgia and neuritis, unspecified; M10.9 Gout, unspecified; E78.00 Pure hypercholesterolemia, unspecified; I10 Essential (primary) hypertension; Z90.710 Acquired absence of both cervix and uterus ==

== ENCOUNTER → 2022-08-14 | Outpatient (CLI) | payer OTHER | LOC: WOUNDCARE 07:16 | PROVIDERS: ATTEND Nurse Practitioner Family | DX: E11.621 Type 2 diabetes mellitus with foot ulcer (principal); L97.522 Non-pressure chronic ulcer of other part of left foot with fat layer exposed; L84 Corns and callosities; E11.69 Type 2 diabetes mellitus with other specified complication; M86.18 Other acute osteomyelitis, other site; E78.00 Pure hypercholesterolemia, unspecified; I10 Essential (primary) hypertension; M79.2 Neuralgia and neuritis, unspecified; M10.9 Gout, unspecified; Z90.710 Acquired absence of both cervix and uterus ==

== ENCOUNTER → 2022-08-21 | Outpatient (CLI) | payer OTHER | END | disposition home or self-care (01) | LOC: WOUNDCARE 01:17 | PROVIDERS: ATTEND Nurse Practitioner Family | DX: E11.621 Type 2 diabetes mellitus with foot ulcer (principal); L97.522 Non-pressure chronic ulcer of other part of left foot with fat layer exposed; L89.891 Pressure ulcer of other site, stage 1; L84 Corns and callosities; M79.2 Neuralgia and neuritis, unspecified; E11.69 Type 2 diabetes mellitus with other specified complication; M86.18 Other acute osteomyelitis, other site; E78.00 Pure hypercholesterolemia, unspecified; I10 Essential (primary) hypertension; M10.9 Gout, unspecified; Z90.710 Acquired absence of both cervix and uterus ==

== ENCOUNTER → 2022-09-02 | Outpatient (CLI) | payer OTHER | END | disposition home or self-care (01) | LOC: WOUNDCARE 00:15 | PROVIDERS: ATTEND Nurse Practitioner Family | DX: E11.621 Type 2 diabetes mellitus with foot ulcer (principal); L97.522 Non-pressure chronic ulcer of other part of left foot with fat layer exposed; L89.893 Pressure ulcer of other site, stage 3; L84 Corns and callosities; M79.2 Neuralgia and neuritis, unspecified; E11.69 Type 2 diabetes mellitus with other specified complication; M86.18 Other acute osteomyelitis, other site; I10 Essential (primary) hypertension; M10.9 Gout, unspecified; Z90.710 Acquired absence of both cervix and uterus ==

== ENCOUNTER → 2022-09-09 | Outpatient (CLI) | payer OTHER | LOC: WOUNDCARE 01:58 | PROVIDERS: ATTEND Nurse Practitioner Family | DX: E11.621 Type 2 diabetes mellitus with foot ulcer (principal); L97.522 Non-pressure chronic ulcer of other part of left foot with fat layer exposed; L89.893 Pressure ulcer of other site, stage 3; L84 Corns and callosities; E11.69 Type 2 diabetes mellitus with other specified complication; M86.18 Other acute osteomyelitis, other site; M79.2 Neuralgia and neuritis, unspecified; M10.9 Gout, unspecified; I10 Essential (primary) hypertension; E78.00 Pure hypercholesterolemia, unspecified; Z90.710 Acquired absence of both cervix and uterus ==

== ENCOUNTER → 2022-09-23 | Outpatient (CLI) | payer OTHER | LOC: WOUNDCARE 01:07 | PROVIDERS: ATTEND Nurse Practitioner Family | DX: E11.621 Type 2 diabetes mellitus with foot ulcer (principal); L97.522 Non-pressure chronic ulcer of other part of left foot with fat layer exposed; L89.893 Pressure ulcer of other site, stage 3; L84 Corns and callosities; E11.69 Type 2 diabetes mellitus with other specified complication; M86.18 Other acute osteomyelitis, other site; E78.00 Pure hypercholesterolemia, unspecified; I10 Essential (primary) hypertension; M10.9 Gout, unspecified; M79.2 Neuralgia and neuritis, unspecified; Z90.710 Acquired absence of both cervix and uterus ==

== ENCOUNTER → 2022-10-07 | Outpatient (CLI) | payer OTHER | END | disposition home or self-care (01) | LOC: WOUNDCARE 01:20 | PROVIDERS: ATTEND Nurse Practitioner Family | DX: E11.621 Type 2 diabetes mellitus with foot ulcer (principal); L97.522 Non-pressure chronic ulcer of other part of left foot with fat layer exposed; L89.893 Pressure ulcer of other site, stage 3; M79.2 Neuralgia and neuritis, unspecified; E11.69 Type 2 diabetes mellitus with other specified complication; M86.18 Other acute osteomyelitis, other site; I10 Essential (primary) hypertension; E78.00 Pure hypercholesterolemia, unspecified; M10.9 Gout, unspecified; Z90.710 Acquired absence of both cervix and uterus ==

== ENCOUNTER → 2022-10-28 | Outpatient (CLI) | payer OTHER | END | disposition home or self-care (01) | LOC: WOUNDCARE 01:28 | PROVIDERS: ATTEND Nurse Practitioner Family | DX: E11.621 Type 2 diabetes mellitus with foot ulcer (principal); L97.522 Non-pressure chronic ulcer of other part of left foot with fat layer exposed; L89.893 Pressure ulcer of other site, stage 3; E11.69 Type 2 diabetes mellitus with other specified complication; M86.18 Other acute osteomyelitis, other site; L84 Corns and callosities; E78.00 Pure hypercholesterolemia, unspecified; I10 Essential (primary) hypertension; M79.2 Neuralgia and neuritis, unspecified; M10.9 Gout, unspecified; Z90.710 Acquired absence of both cervix and uterus ==

== ENCOUNTER → 2022-11-04 | Outpatient (CLI) | payer OTHER | END | disposition home or self-care (01) | LOC: WOUNDCARE 01:09 | PROVIDERS: ATTEND Nurse Practitioner Family | DX: E11.621 Type 2 diabetes mellitus with foot ulcer (principal); L97.522 Non-pressure chronic ulcer of other part of left foot with fat layer exposed; L89.893 Pressure ulcer of other site, stage 3; L84 Corns and callosities; E11.69 Type 2 diabetes mellitus with other specified complication; M86.18 Other acute osteomyelitis, other site; E78.00 Pure hypercholesterolemia, unspecified; I10 Essential (primary) hypertension; M79.2 Neuralgia and neuritis, unspecified; M10.9 Gout, unspecified; Z90.710 Acquired absence of both cervix and uterus ==

== ENCOUNTER → 2022-11-12 | Outpatient (CLI) | payer OTHER | END | disposition home or self-care (01) | LOC: WOUNDCARE 09:08 | PROVIDERS: ATTEND Nurse Practitioner Family | DX: E11.621 Type 2 diabetes mellitus with foot ulcer (principal); L97.522 Non-pressure chronic ulcer of other part of left foot with fat layer exposed; L89.893 Pressure ulcer of other site, stage 3; L84 Corns and callosities; M79.2 Neuralgia and neuritis, unspecified; E11.69 Type 2 diabetes mellitus with other specified complication; M86.18 Other acute osteomyelitis, other site; E78.00 Pure hypercholesterolemia, unspecified; M10.9 Gout, unspecified; I10 Essential (primary) hypertension; Z90.710 Acquired absence of both cervix and uterus ==

== ENCOUNTER → 2022-11-18 | Outpatient (CLI) | payer OTHER | END | disposition home or self-care (01) | LOC: WOUNDCARE 02:47 | PROVIDERS: ATTEND Nurse Practitioner Family | DX: E11.621 Type 2 diabetes mellitus with foot ulcer (principal); L97.522 Non-pressure chronic ulcer of other part of left foot with fat layer exposed; L89.893 Pressure ulcer of other site, stage 3; L84 Corns and callosities; E11.69 Type 2 diabetes mellitus with other specified complication; M86.18 Other acute osteomyelitis, other site; E78.00 Pure hypercholesterolemia, unspecified; I10 Essential (primary) hypertension; M79.2 Neuralgia and neuritis, unspecified; M10.9 Gout, unspecified; Z90.710 Acquired absence of both cervix and uterus ==

== ENCOUNTER → 2022-12-10 | Outpatient (CLI) | payer OTHER | END | disposition home or self-care (01) | LOC: WOUNDCARE 01:14 | PROVIDERS: ATTEND Nurse Practitioner Family | DX: E11.621 Type 2 diabetes mellitus with foot ulcer (principal); L97.522 Non-pressure chronic ulcer of other part of left foot with fat layer exposed; L89.893 Pressure ulcer of other site, stage 3; L84 Corns and callosities; M79.2 Neuralgia and neuritis, unspecified; E11.69 Type 2 diabetes mellitus with other specified complication; M86.18 Other acute osteomyelitis, other site; M10.9 Gout, unspecified; I10 Essential (primary) hypertension; E78.00 Pure hypercholesterolemia, unspecified; Z90.710 Acquired absence of both cervix and uterus ==

== ENCOUNTER → 2022-12-24 | Outpatient (CLI) | payer OTHER | END | disposition home or self-care (01) | LOC: WOUNDCARE 01:12 | PROVIDERS: ATTEND Nurse Practitioner Family | DX: E11.621 Type 2 diabetes mellitus with foot ulcer (principal); L97.522 Non-pressure chronic ulcer of other part of left foot with fat layer exposed; L89.893 Pressure ulcer of other site, stage 3; L84 Corns and callosities; E11.69 Type 2 diabetes mellitus with other specified complication; M86.18 Other acute osteomyelitis, other site; E78.00 Pure hypercholesterolemia, unspecified; M79.2 Neuralgia and neuritis, unspecified; M10.9 Gout, unspecified; I10 Essential (primary) hypertension; Z90.710 Acquired absence of both cervix and uterus ==

== ENCOUNTER → 2023-01-07 | Outpatient (CLI) | payer OTHER | END | disposition home or self-care (01) | LOC: WOUNDCARE 01:08 | PROVIDERS: ATTEND Nurse Practitioner Family | DX: E11.621 Type 2 diabetes mellitus with foot ulcer (principal); L97.522 Non-pressure chronic ulcer of other part of left foot with fat layer exposed; L89.893 Pressure ulcer of other site, stage 3; E11.69 Type 2 diabetes mellitus with other specified complication; M86.18 Other acute osteomyelitis, other site; E78.00 Pure hypercholesterolemia, unspecified; M79.2 Neuralgia and neuritis, unspecified; M10.9 Gout, unspecified; I10 Essential (primary) hypertension; Z90.710 Acquired absence of both cervix and uterus ==

== ENCOUNTER → 2023-01-21 | Outpatient (CLI) | payer OTHER | END | disposition home or self-care (01) | LOC: WOUNDCARE 00:37 | PROVIDERS: ATTEND Nurse Practitioner Family | DX: E11.621 Type 2 diabetes mellitus with foot ulcer (principal); L97.522 Non-pressure chronic ulcer of other part of left foot with fat layer exposed; L84 Corns and callosities; M79.2 Neuralgia and neuritis, unspecified; E11.69 Type 2 diabetes mellitus with other specified complication; M86.18 Other acute osteomyelitis, other site; E78.00 Pure hypercholesterolemia, unspecified; I10 Essential (primary) hypertension; M10.9 Gout, unspecified; Z90.710 Acquired absence of both cervix and uterus ==

== ENCOUNTER → 2023-02-04 | Outpatient (CLI) | payer OTHER | END | disposition home or self-care (01) | LOC: WOUNDCARE 09-16 00:50 | PROVIDERS: ATTEND Nurse Practitioner Family | DX: E11.621 Type 2 diabetes mellitus with foot ulcer (principal); L97.522 Non-pressure chronic ulcer of other part of left foot with fat layer exposed; E11.69 Type 2 diabetes mellitus with other specified complication; M86.18 Other acute osteomyelitis, other site; M79.2 Neuralgia and neuritis, unspecified; M10.9 Gout, unspecified; E78.00 Pure hypercholesterolemia, unspecified; I10 Essential (primary) hypertension; Z90.710 Acquired absence of both cervix and uterus ==

== ENCOUNTER → 2023-02-18 | Outpatient (CLI) | payer OTHER | END | disposition home or self-care (01) | LOC: WOUNDCARE 02:19 | PROVIDERS: ATTEND Nurse Practitioner Family | DX: E11.621 Type 2 diabetes mellitus with foot ulcer (principal); L97.522 Non-pressure chronic ulcer of other part of left foot with fat layer exposed; L84 Corns and callosities; E11.69 Type 2 diabetes mellitus with other specified complication; M86.18 Other acute osteomyelitis, other site; E78.00 Pure hypercholesterolemia, unspecified; I10 Essential (primary) hypertension; M79.2 Neuralgia and neuritis, unspecified; M10.9 Gout, unspecified; Z90.710 Acquired absence of both cervix and uterus ==

== ENCOUNTER → 2023-03-04 | Outpatient (CLI) | payer OTHER | END | disposition home or self-care (01) | LOC: WOUNDCARE 00:37 | PROVIDERS: ATTEND Nurse Practitioner Family | DX: E11.621 Type 2 diabetes mellitus with foot ulcer (principal); L97.522 Non-pressure chronic ulcer of other part of left foot with fat layer exposed; L84 Corns and callosities; E11.69 Type 2 diabetes mellitus with other specified complication; M86.18 Other acute osteomyelitis, other site; M79.2 Neuralgia and neuritis, unspecified; M10.9 Gout, unspecified; I10 Essential (primary) hypertension; E78.00 Pure hypercholesterolemia, unspecified; Z90.710 Acquired absence of both cervix and uterus ==

== ENCOUNTER → 2023-03-25 | Outpatient (CLI) | payer OTHER | LOC: WOUNDCARE 03-16 01:26 | PROVIDERS: ATTEND Nurse Practitioner Family | DX: Z53.21 Procedure and treatment not carried out due to patient leaving prior to being seen by health care provider (principal) ==

== ENCOUNTER → 2023-11-01 | Outpatient (CLI) | payer OTHER | END | disposition home or self-care (01) | LOC: WOUNDCARE 01:50 | PROVIDERS: ATTEND Nurse Practitioner Family | DX: E11.621 Type 2 diabetes mellitus with foot ulcer (principal); L97.522 Non-pressure chronic ulcer of other part of left foot with fat layer exposed; L97.512 Non-pressure chronic ulcer of other part of right foot with fat layer exposed; L98.9 Disorder of the skin and subcutaneous tissue, unspecified; L84 Corns and callosities; E11.610 Type 2 diabetes mellitus with diabetic neuropathic arthropathy; E11.40 Type 2 diabetes mellitus with diabetic neuropathy, unspecified; E78.00 Pure hypercholesterolemia, unspecified; I10 Essential (primary) hypertension; M10.9 Gout, unspecified; Z90.710 Acquired absence of both cervix and uterus ==

== ENCOUNTER → 2023-11-08 | Outpatient (CLI) | payer OTHER | END | disposition home or self-care (01) | LOC: WOUNDCARE 01:56 | PROVIDERS: ATTEND Nurse Practitioner Family | DX: E11.621 Type 2 diabetes mellitus with foot ulcer (principal); L97.512 Non-pressure chronic ulcer of other part of right foot with fat layer exposed; L97.522 Non-pressure chronic ulcer of other part of left foot with fat layer exposed; L98.9 Disorder of the skin and subcutaneous tissue, unspecified; L84 Corns and callosities; E11.610 Type 2 diabetes mellitus with diabetic neuropathic arthropathy; E11.40 Type 2 diabetes mellitus with diabetic neuropathy, unspecified; I10 Essential (primary) hypertension; E78.00 Pure hypercholesterolemia, unspecified; M10.9 Gout, unspecified; Z90.710 Acquired absence of both cervix and uterus ==

== ENCOUNTER → 2023-11-16 | Outpatient (CLI) | payer OTHER | END | disposition home or self-care (01) | LOC: WOUNDCARE 02:15 → US 09:00 | PROVIDERS: ATTEND Nurse Practitioner Family | DX: E11.621 Type 2 diabetes mellitus with foot ulcer (principal); L97.522 Non-pressure chronic ulcer of other part of left foot with fat layer exposed; L97.512 Non-pressure chronic ulcer of other part of right foot with fat layer exposed; L84 Corns and callosities; E11.40 Type 2 diabetes mellitus with diabetic neuropathy, unspecified; E11.610 Type 2 diabetes mellitus with diabetic neuropathic arthropathy; L98.9 Disorder of the skin and subcutaneous tissue, unspecified; E78.00 Pure hypercholesterolemia, unspecified; I10 Essential (primary) hypertension; M10.9 Gout, unspecified; Z90.710 Acquired absence of both cervix and uterus ==

== ENCOUNTER → 2023-11-24 | Outpatient (CLI) | payer OTHER | LOC: WOUNDCARE 03:24 | PROVIDERS: ATTEND Nurse Practitioner Family | DX: E11.622 Type 2 diabetes mellitus with other skin ulcer (principal); L97.512 Non-pressure chronic ulcer of other part of right foot with fat layer exposed; L97.522 Non-pressure chronic ulcer of other part of left foot with fat layer exposed; L84 Corns and callosities; E11.610 Type 2 diabetes mellitus with diabetic neuropathic arthropathy; E11.40 Type 2 diabetes mellitus with diabetic neuropathy, unspecified; L98.9 Disorder of the skin and subcutaneous tissue, unspecified; M10.9 Gout, unspecified; I10 Essential (primary) hypertension; E78.00 Pure hypercholesterolemia, unspecified; Z90.710 Acquired absence of both cervix and uterus ==

== ENCOUNTER → 2023-12-01 | Outpatient (CLI) | payer OTHER | END | disposition home or self-care (01) | LOC: WOUNDCARE 00:11 | PROVIDERS: ATTEND Nurse Practitioner Family | DX: E11.621 Type 2 diabetes mellitus with foot ulcer (principal); L97.512 Non-pressure chronic ulcer of other part of right foot with fat layer exposed; L97.522 Non-pressure chronic ulcer of other part of left foot with fat layer exposed; L84 Corns and callosities; E11.40 Type 2 diabetes mellitus with diabetic neuropathy, unspecified; E11.610 Type 2 diabetes mellitus with diabetic neuropathic arthropathy; L98.9 Disorder of the skin and subcutaneous tissue, unspecified; I10 Essential (primary) hypertension; E78.00 Pure hypercholesterolemia, unspecified; M10.9 Gout, unspecified; Z90.710 Acquired absence of both cervix and uterus ==

== ENCOUNTER → 2023-12-08 | Outpatient (CLI) | payer OTHER | END | disposition home or self-care (01) | LOC: WOUNDCARE 00:32 | PROVIDERS: ATTEND Nurse Practitioner Family | DX: E11.621 Type 2 diabetes mellitus with foot ulcer (principal); L97.522 Non-pressure chronic ulcer of other part of left foot with fat layer exposed; L97.512 Non-pressure chronic ulcer of other part of right foot with fat layer exposed; E11.40 Type 2 diabetes mellitus with diabetic neuropathy, unspecified; E11.610 Type 2 diabetes mellitus with diabetic neuropathic arthropathy; L98.9 Disorder of the skin and subcutaneous tissue, unspecified; L84 Corns and callosities; M10.9 Gout, unspecified; I10 Essential (primary) hypertension; I48.92 Unspecified atrial flutter; E78.00 Pure hypercholesterolemia, unspecified; Z90.710 Acquired absence of both cervix and uterus; Z79.84 Long term (current) use of oral hypoglycemic drugs; Z79.82 Long term (current) use of aspirin ==

== ENCOUNTER → 2023-12-14 | Outpatient (CLI) | payer OTHER | END | disposition home or self-care (01) | LOC: WOUNDCARE 05:44 | PROVIDERS: ATTEND Nurse Practitioner Family | DX: E11.621 Type 2 diabetes mellitus with foot ulcer (principal); L97.512 Non-pressure chronic ulcer of other part of right foot with fat layer exposed; L97.522 Non-pressure chronic ulcer of other part of left foot with fat layer exposed; L84 Corns and callosities; E11.40 Type 2 diabetes mellitus with diabetic neuropathy, unspecified; E11.610 Type 2 diabetes mellitus with diabetic neuropathic arthropathy; L98.9 Disorder of the skin and subcutaneous tissue, unspecified; M10.9 Gout, unspecified; I10 Essential (primary) hypertension; I48.92 Unspecified atrial flutter; E78.00 Pure hypercholesterolemia, unspecified; Z90.710 Acquired absence of both cervix and uterus; Z79.84 Long term (current) use of oral hypoglycemic drugs; Z79.82 Long term (current) use of aspirin ==

== ENCOUNTER → 2023-12-28 | Outpatient (CLI) | payer OTHER | END | disposition home or self-care (01) | LOC: WOUNDCARE 01:51 | PROVIDERS: ATTEND Nurse Practitioner Family | DX: E11.621 Type 2 diabetes mellitus with foot ulcer (principal); L97.522 Non-pressure chronic ulcer of other part of left foot with fat layer exposed; L97.512 Non-pressure chronic ulcer of other part of right foot with fat layer exposed; E11.40 Type 2 diabetes mellitus with diabetic neuropathy, unspecified; E11.610 Type 2 diabetes mellitus with diabetic neuropathic arthropathy; L98.9 Disorder of the skin and subcutaneous tissue, unspecified; I10 Essential (primary) hypertension; E78.00 Pure hypercholesterolemia, unspecified; M10.9 Gout, unspecified; Z90.710 Acquired absence of both cervix and uterus ==

== ENCOUNTER → 2024-01-04 | Outpatient (CLI) | payer OTHER | END | disposition home or self-care (01) | LOC: WOUNDCARE 01-03 14:18 | PROVIDERS: ATTEND Nurse Practitioner Family | DX: E11.621 Type 2 diabetes mellitus with foot ulcer (principal); L97.522 Non-pressure chronic ulcer of other part of left foot with fat layer exposed; L97.512 Non-pressure chronic ulcer of other part of right foot with fat layer exposed; E11.40 Type 2 diabetes mellitus with diabetic neuropathy, unspecified; E11.610 Type 2 diabetes mellitus with diabetic neuropathic arthropathy; L98.9 Disorder of the skin and subcutaneous tissue, unspecified; M10.9 Gout, unspecified; I48.92 Unspecified atrial flutter; E78.00 Pure hypercholesterolemia, unspecified; Z90.710 Acquired absence of both cervix and uterus ==

== ENCOUNTER → 2024-01-11 | Outpatient (CLI) | payer OTHER | END | disposition home or self-care (01) | LOC: WOUNDCARE 01:25 | PROVIDERS: ATTEND Nurse Practitioner Family | DX: E11.621 Type 2 diabetes mellitus with foot ulcer (principal); L97.522 Non-pressure chronic ulcer of other part of left foot with fat layer exposed; L97.512 Non-pressure chronic ulcer of other part of right foot with fat layer exposed; E11.40 Type 2 diabetes mellitus with diabetic neuropathy, unspecified; E11.610 Type 2 diabetes mellitus with diabetic neuropathic arthropathy; L98.9 Disorder of the skin and subcutaneous tissue, unspecified; L84 Corns and callosities; M10.9 Gout, unspecified; I10 Essential (primary) hypertension; I48.92 Unspecified atrial flutter; E78.00 Pure hypercholesterolemia, unspecified; Z90.710 Acquired absence of both cervix and uterus ==

== ENCOUNTER → 2024-01-18 | Outpatient (CLI) | payer OTHER | END | disposition home or self-care (01) | LOC: WOUNDCARE 01:28 | PROVIDERS: ATTEND Nurse Practitioner Family | DX: E11.621 Type 2 diabetes mellitus with foot ulcer (principal); L97.512 Non-pressure chronic ulcer of other part of right foot with fat layer exposed; L97.522 Non-pressure chronic ulcer of other part of left foot with fat layer exposed; E11.40 Type 2 diabetes mellitus with diabetic neuropathy, unspecified; L98.9 Disorder of the skin and subcutaneous tissue, unspecified; E11.610 Type 2 diabetes mellitus with diabetic neuropathic arthropathy; L84 Corns and callosities; M10.9 Gout, unspecified; I48.92 Unspecified atrial flutter; I10 Essential (primary) hypertension; E78.00 Pure hypercholesterolemia, unspecified; Z90.710 Acquired absence of both cervix and uterus; Z79.84 Long term (current) use of oral hypoglycemic drugs; Z79.82 Long term (current) use of aspirin ==

== ENCOUNTER → 2024-01-25 | Outpatient (CLI) | payer OTHER | END | disposition home or self-care (01) | LOC: WOUNDCARE 02:16 | PROVIDERS: ATTEND Nurse Practitioner Family | DX: E11.621 Type 2 diabetes mellitus with foot ulcer (principal); L97.522 Non-pressure chronic ulcer of other part of left foot with fat layer exposed; L97.512 Non-pressure chronic ulcer of other part of right foot with fat layer exposed; E11.40 Type 2 diabetes mellitus with diabetic neuropathy, unspecified; E11.610 Type 2 diabetes mellitus with diabetic neuropathic arthropathy; L84 Corns and callosities; M10.9 Gout, unspecified; I10 Essential (primary) hypertension; I48.92 Unspecified atrial flutter; E78.00 Pure hypercholesterolemia, unspecified; Z90.710 Acquired absence of both cervix and uterus ==

== ENCOUNTER → 2024-02-02 | Outpatient (CLI) | payer OTHER | END | disposition home or self-care (01) | LOC: WOUNDCARE 01:56 | PROVIDERS: ATTEND Nurse Practitioner Family | DX: E11.621 Type 2 diabetes mellitus with foot ulcer (principal); L97.512 Non-pressure chronic ulcer of other part of right foot with fat layer exposed; L97.522 Non-pressure chronic ulcer of other part of left foot with fat layer exposed; E11.610 Type 2 diabetes mellitus with diabetic neuropathic arthropathy; E11.40 Type 2 diabetes mellitus with diabetic neuropathy, unspecified; L98.9 Disorder of the skin and subcutaneous tissue, unspecified; L84 Corns and callosities; I10 Essential (primary) hypertension; E78.00 Pure hypercholesterolemia, unspecified; M10.9 Gout, unspecified; Z90.710 Acquired absence of both cervix and uterus ==

== ENCOUNTER → 2024-02-08 | Outpatient (CLI) | payer OTHER | END | disposition home or self-care (01) | LOC: WOUNDCARE 01:57 | PROVIDERS: ATTEND Nurse Practitioner Family | DX: E11.621 Type 2 diabetes mellitus with foot ulcer (principal); L97.522 Non-pressure chronic ulcer of other part of left foot with fat layer exposed; L97.512 Non-pressure chronic ulcer of other part of right foot with fat layer exposed; E11.610 Type 2 diabetes mellitus with diabetic neuropathic arthropathy; E11.40 Type 2 diabetes mellitus with diabetic neuropathy, unspecified; L98.9 Disorder of the skin and subcutaneous tissue, unspecified; I10 Essential (primary) hypertension; E78.00 Pure hypercholesterolemia, unspecified; M10.9 Gout, unspecified; Z90.710 Acquired absence of both cervix and uterus ==

== ENCOUNTER → 2024-02-15 | Outpatient (CLI) | payer OTHER | END | disposition home or self-care (01) | LOC: WOUNDCARE 01:51 | PROVIDERS: ATTEND Nurse Practitioner Family | DX: E11.621 Type 2 diabetes mellitus with foot ulcer (principal); L97.522 Non-pressure chronic ulcer of other part of left foot with fat layer exposed; L97.512 Non-pressure chronic ulcer of other part of right foot with fat layer exposed; L84 Corns and callosities; L98.9 Disorder of the skin and subcutaneous tissue, unspecified; E11.40 Type 2 diabetes mellitus with diabetic neuropathy, unspecified; E11.610 Type 2 diabetes mellitus with diabetic neuropathic arthropathy; I10 Essential (primary) hypertension; E78.00 Pure hypercholesterolemia, unspecified; Z79.82 Long term (current) use of aspirin; Z79.84 Long term (current) use of oral hypoglycemic drugs; Z79.899 Other long term (current) drug therapy; Z90.710 Acquired absence of both cervix and uterus ==

== ENCOUNTER → 2024-02-22 | Outpatient (CLI) | payer OTHER | END | disposition home or self-care (01) | LOC: WOUNDCARE 01:16 | PROVIDERS: ATTEND Nurse Practitioner Family | DX: E11.621 Type 2 diabetes mellitus with foot ulcer (principal); L97.522 Non-pressure chronic ulcer of other part of left foot with fat layer exposed; L97.512 Non-pressure chronic ulcer of other part of right foot with fat layer exposed; L84 Corns and callosities; L98.9 Disorder of the skin and subcutaneous tissue, unspecified; E11.40 Type 2 diabetes mellitus with diabetic neuropathy, unspecified; E11.610 Type 2 diabetes mellitus with diabetic neuropathic arthropathy; I10 Essential (primary) hypertension; E78.00 Pure hypercholesterolemia, unspecified; Z90.710 Acquired absence of both cervix and uterus; Z79.82 Long term (current) use of aspirin; Z79.84 Long term (current) use of oral hypoglycemic drugs; Z79.899 Other long term (current) drug therapy ==

== ENCOUNTER → 2024-02-29 | Outpatient (CLI) | payer OTHER | END | disposition home or self-care (01) | LOC: WOUNDCARE 02:06 | PROVIDERS: ATTEND Nurse Practitioner Family | DX: E11.621 Type 2 diabetes mellitus with foot ulcer (principal); L97.522 Non-pressure chronic ulcer of other part of left foot with fat layer exposed; L97.512 Non-pressure chronic ulcer of other part of right foot with fat layer exposed; L84 Corns and callosities; E11.40 Type 2 diabetes mellitus with diabetic neuropathy, unspecified; E11.610 Type 2 diabetes mellitus with diabetic neuropathic arthropathy; M10.9 Gout, unspecified; L98.9 Disorder of the skin and subcutaneous tissue, unspecified; I10 Essential (primary) hypertension; E78.00 Pure hypercholesterolemia, unspecified; Z90.710 Acquired absence of both cervix and uterus; Z98.890 Other specified postprocedural states; Z79.84 Long term (current) use of oral hypoglycemic drugs; Z79.899 Other long term (current) drug therapy ==

== ENCOUNTER → 2024-03-07 | Outpatient (CLI) | payer OTHER | END | disposition home or self-care (01) | LOC: WOUNDCARE 03-06 20:19 | PROVIDERS: ATTEND Nurse Practitioner Family | DX: E11.621 Type 2 diabetes mellitus with foot ulcer (principal); L97.522 Non-pressure chronic ulcer of other part of left foot with fat layer exposed; L97.512 Non-pressure chronic ulcer of other part of right foot with fat layer exposed; E11.40 Type 2 diabetes mellitus with diabetic neuropathy, unspecified; E11.610 Type 2 diabetes mellitus with diabetic neuropathic arthropathy; I10 Essential (primary) hypertension; M10.9 Gout, unspecified; E78.00 Pure hypercholesterolemia, unspecified; I48.92 Unspecified atrial flutter; L98.9 Disorder of the skin and subcutaneous tissue, unspecified; L84 Corns and callosities; Z90.710 Acquired absence of both cervix and uterus; Z79.84 Long term (current) use of oral hypoglycemic drugs; Z79.82 Long term (current) use of aspirin; Z79.899 Other long term (current) drug therapy ==

== ENCOUNTER → 2024-03-14 | Outpatient (CLI) | payer OTHER | END | disposition home or self-care (01) | LOC: WOUNDCARE 03:03 | PROVIDERS: ATTEND Nurse Practitioner Family | DX: E11.621 Type 2 diabetes mellitus with foot ulcer (principal); L97.522 Non-pressure chronic ulcer of other part of left foot with fat layer exposed; L97.512 Non-pressure chronic ulcer of other part of right foot with fat layer exposed; E11.40 Type 2 diabetes mellitus with diabetic neuropathy, unspecified; E11.610 Type 2 diabetes mellitus with diabetic neuropathic arthropathy; I10 Essential (primary) hypertension; I48.92 Unspecified atrial flutter; E78.00 Pure hypercholesterolemia, unspecified; M10.9 Gout, unspecified; L98.9 Disorder of the skin and subcutaneous tissue, unspecified; L84 Corns and callosities; Z90.710 Acquired absence of both cervix and uterus; Z79.84 Long term (current) use of oral hypoglycemic drugs; Z79.82 Long term (current) use of aspirin; Z79.899 Other long term (current) drug therapy ==

== ENCOUNTER → 2024-03-21 | Outpatient (CLI) | payer OTHER | END | disposition home or self-care (01) | LOC: WOUNDCARE 00:12 | PROVIDERS: ATTEND Nurse Practitioner Family | DX: E11.621 Type 2 diabetes mellitus with foot ulcer (principal); L97.512 Non-pressure chronic ulcer of other part of right foot with fat layer exposed; L97.522 Non-pressure chronic ulcer of other part of left foot with fat layer exposed; L84 Corns and callosities; E11.40 Type 2 diabetes mellitus with diabetic neuropathy, unspecified; E11.610 Type 2 diabetes mellitus with diabetic neuropathic arthropathy; I10 Essential (primary) hypertension; E78.00 Pure hypercholesterolemia, unspecified; M10.9 Gout, unspecified; L98.9 Disorder of the skin and subcutaneous tissue, unspecified; Z90.710 Acquired absence of both cervix and uterus; Z79.84 Long term (current) use of oral hypoglycemic drugs; Z79.82 Long term (current) use of aspirin; Z79.899 Other long term (current) drug therapy ==

== ENCOUNTER → 2024-03-28 | Outpatient (CLI) | payer OTHER | END | disposition home or self-care (01) | LOC: WOUNDCARE 01:30 | PROVIDERS: ATTEND Nurse Practitioner Family | DX: E11.621 Type 2 diabetes mellitus with foot ulcer (principal); L97.512 Non-pressure chronic ulcer of other part of right foot with fat layer exposed; L97.522 Non-pressure chronic ulcer of other part of left foot with fat layer exposed; L84 Corns and callosities; L98.9 Disorder of the skin and subcutaneous tissue, unspecified; E11.40 Type 2 diabetes mellitus with diabetic neuropathy, unspecified; E11.610 Type 2 diabetes mellitus with diabetic neuropathic arthropathy; I10 Essential (primary) hypertension; E78.00 Pure hypercholesterolemia, unspecified; M10.9 Gout, unspecified; Z90.710 Acquired absence of both cervix and uterus; Z79.84 Long term (current) use of oral hypoglycemic drugs; Z79.82 Long term (current) use of aspirin; Z79.899 Other long term (current) drug therapy ==

== ENCOUNTER → 2024-04-04 | Outpatient (CLI) | payer OTHER | END | disposition home or self-care (01) | LOC: WOUNDCARE 00:44 | PROVIDERS: ATTEND Nurse Practitioner Family | DX: E11.621 Type 2 diabetes mellitus with foot ulcer (principal); L97.512 Non-pressure chronic ulcer of other part of right foot with fat layer exposed; L97.522 Non-pressure chronic ulcer of other part of left foot with fat layer exposed; L84 Corns and callosities; L98.9 Disorder of the skin and subcutaneous tissue, unspecified; E11.40 Type 2 diabetes mellitus with diabetic neuropathy, unspecified; E11.610 Type 2 diabetes mellitus with diabetic neuropathic arthropathy; I10 Essential (primary) hypertension; E78.00 Pure hypercholesterolemia, unspecified; M10.9 Gout, unspecified; Z90.710 Acquired absence of both cervix and uterus; Z79.82 Long term (current) use of aspirin; Z79.84 Long term (current) use of oral hypoglycemic drugs; Z79.899 Other long term (current) drug therapy ==

== ENCOUNTER → 2024-04-11 | Outpatient (CLI) | payer OTHER | END | disposition home or self-care (01) | LOC: WOUNDCARE 00:40 | PROVIDERS: ATTEND Nurse Practitioner Family | DX: E11.621 Type 2 diabetes mellitus with foot ulcer (principal); L97.512 Non-pressure chronic ulcer of other part of right foot with fat layer exposed; L97.522 Non-pressure chronic ulcer of other part of left foot with fat layer exposed; L84 Corns and callosities; L98.9 Disorder of the skin and subcutaneous tissue, unspecified; E11.40 Type 2 diabetes mellitus with diabetic neuropathy, unspecified; E11.610 Type 2 diabetes mellitus with diabetic neuropathic arthropathy; I10 Essential (primary) hypertension; E78.00 Pure hypercholesterolemia, unspecified; M10.9 Gout, unspecified; Z90.710 Acquired absence of both cervix and uterus; Z79.82 Long term (current) use of aspirin; Z79.84 Long term (current) use of oral hypoglycemic drugs; Z79.899 Other long term (current) drug therapy ==

== ENCOUNTER → 2024-04-18 | Outpatient (CLI) | payer OTHER | END | disposition home or self-care (01) | LOC: WOUNDCARE 00:54 | PROVIDERS: ATTEND Nurse Practitioner Family | DX: E11.621 Type 2 diabetes mellitus with foot ulcer (principal); L97.512 Non-pressure chronic ulcer of other part of right foot with fat layer exposed; L97.522 Non-pressure chronic ulcer of other part of left foot with fat layer exposed; L84 Corns and callosities; L98.9 Disorder of the skin and subcutaneous tissue, unspecified; E11.40 Type 2 diabetes mellitus with diabetic neuropathy, unspecified; E11.610 Type 2 diabetes mellitus with diabetic neuropathic arthropathy; I10 Essential (primary) hypertension; E78.00 Pure hypercholesterolemia, unspecified; M10.9 Gout, unspecified; Z90.710 Acquired absence of both cervix and uterus; Z79.82 Long term (current) use of aspirin; Z79.84 Long term (current) use of oral hypoglycemic drugs; Z79.899 Other long term (current) drug therapy ==

== ENCOUNTER → 2024-04-25 | Outpatient (CLI) | payer OTHER | END | disposition home or self-care (01) | LOC: WOUNDCARE 00:54 | PROVIDERS: ATTEND Nurse Practitioner Family | DX: E11.621 Type 2 diabetes mellitus with foot ulcer (principal); L97.512 Non-pressure chronic ulcer of other part of right foot with fat layer exposed; L97.522 Non-pressure chronic ulcer of other part of left foot with fat layer exposed; L84 Corns and callosities; L98.9 Disorder of the skin and subcutaneous tissue, unspecified; E11.40 Type 2 diabetes mellitus with diabetic neuropathy, unspecified; E11.610 Type 2 diabetes mellitus with diabetic neuropathic arthropathy; I10 Essential (primary) hypertension; E78.00 Pure hypercholesterolemia, unspecified; M10.9 Gout, unspecified; Z90.710 Acquired absence of both cervix and uterus; Z79.82 Long term (current) use of aspirin; Z79.84 Long term (current) use of oral hypoglycemic drugs; Z79.899 Other long term (current) drug therapy ==

== ENCOUNTER → 2024-05-02 | Outpatient (CLI) | payer OTHER | END | disposition home or self-care (01) | LOC: WOUNDCARE 00:39 | PROVIDERS: ATTEND Nurse Practitioner Family | DX: E11.621 Type 2 diabetes mellitus with foot ulcer (principal); L97.512 Non-pressure chronic ulcer of other part of right foot with fat layer exposed; L97.522 Non-pressure chronic ulcer of other part of left foot with fat layer exposed; L84 Corns and callosities; L98.9 Disorder of the skin and subcutaneous tissue, unspecified; E11.40 Type 2 diabetes mellitus with diabetic neuropathy, unspecified; E11.610 Type 2 diabetes mellitus with diabetic neuropathic arthropathy; I10 Essential (primary) hypertension; E78.00 Pure hypercholesterolemia, unspecified; M10.9 Gout, unspecified; Z90.710 Acquired absence of both cervix and uterus; Z79.82 Long term (current) use of aspirin; Z79.84 Long term (current) use of oral hypoglycemic drugs; Z79.899 Other long term (current) drug therapy ==

== ENCOUNTER → 2024-05-09 | Outpatient (CLI) | payer OTHER | END | disposition home or self-care (01) | LOC: WOUNDCARE 01:10 | PROVIDERS: ATTEND Nurse Practitioner Family | DX: E11.621 Type 2 diabetes mellitus with foot ulcer (principal); L97.512 Non-pressure chronic ulcer of other part of right foot with fat layer exposed; L97.522 Non-pressure chronic ulcer of other part of left foot with fat layer exposed; L84 Corns and callosities; L98.9 Disorder of the skin and subcutaneous tissue, unspecified; E11.40 Type 2 diabetes mellitus with diabetic neuropathy, unspecified; E11.610 Type 2 diabetes mellitus with diabetic neuropathic arthropathy; I10 Essential (primary) hypertension; E78.00 Pure hypercholesterolemia, unspecified; M10.9 Gout, unspecified; Z90.710 Acquired absence of both cervix and uterus; Z79.82 Long term (current) use of aspirin; Z79.84 Long term (current) use of oral hypoglycemic drugs; Z79.899 Other long term (current) drug therapy ==

== ENCOUNTER → 2024-05-16 | Outpatient (CLI) | payer OTHER | END | disposition home or self-care (01) | LOC: WOUNDCARE 00:59 | PROVIDERS: ATTEND Nurse Practitioner Family | DX: E11.621 Type 2 diabetes mellitus with foot ulcer (principal); L97.512 Non-pressure chronic ulcer of other part of right foot with fat layer exposed; L97.522 Non-pressure chronic ulcer of other part of left foot with fat layer exposed; L84 Corns and callosities; L98.9 Disorder of the skin and subcutaneous tissue, unspecified; E11.40 Type 2 diabetes mellitus with diabetic neuropathy, unspecified; E11.610 Type 2 diabetes mellitus with diabetic neuropathic arthropathy; I10 Essential (primary) hypertension; E78.00 Pure hypercholesterolemia, unspecified; M10.9 Gout, unspecified; Z90.710 Acquired absence of both cervix and uterus; Z79.82 Long term (current) use of aspirin; Z79.84 Long term (current) use of oral hypoglycemic drugs; Z79.899 Other long term (current) drug therapy ==

== ENCOUNTER → 2024-05-23 | Outpatient (CLI) | payer OTHER | END | disposition home or self-care (01) | LOC: WOUNDCARE 00:23 | PROVIDERS: ATTEND Nurse Practitioner Family | DX: E11.621 Type 2 diabetes mellitus with foot ulcer (principal); L97.512 Non-pressure chronic ulcer of other part of right foot with fat layer exposed; L97.522 Non-pressure chronic ulcer of other part of left foot with fat layer exposed; L84 Corns and callosities; L98.9 Disorder of the skin and subcutaneous tissue, unspecified; E11.40 Type 2 diabetes mellitus with diabetic neuropathy, unspecified; E11.610 Type 2 diabetes mellitus with diabetic neuropathic arthropathy; I10 Essential (primary) hypertension; E78.00 Pure hypercholesterolemia, unspecified; M10.9 Gout, unspecified; Z90.710 Acquired absence of both cervix and uterus; Z79.82 Long term (current) use of aspirin; Z79.84 Long term (current) use of oral hypoglycemic drugs; Z79.899 Other long term (current) drug therapy ==

== ENCOUNTER → 2024-05-30 | Outpatient (CLI) | payer OTHER | END | disposition home or self-care (01) | LOC: WOUNDCARE 03:02 | PROVIDERS: ATTEND Nurse Practitioner Family | DX: E11.621 Type 2 diabetes mellitus with foot ulcer (principal); L97.512 Non-pressure chronic ulcer of other part of right foot with fat layer exposed; L97.522 Non-pressure chronic ulcer of other part of left foot with fat layer exposed; L84 Corns and callosities; L98.9 Disorder of the skin and subcutaneous tissue, unspecified; E11.40 Type 2 diabetes mellitus with diabetic neuropathy, unspecified; E11.610 Type 2 diabetes mellitus with diabetic neuropathic arthropathy; I10 Essential (primary) hypertension; E78.00 Pure hypercholesterolemia, unspecified; M10.9 Gout, unspecified; Z90.710 Acquired absence of both cervix and uterus; Z79.82 Long term (current) use of aspirin; Z79.84 Long term (current) use of oral hypoglycemic drugs; Z79.899 Other long term (current) drug therapy ==

== ENCOUNTER → 2024-06-08 | Outpatient (CLI) | payer OTHER | END | disposition home or self-care (01) | LOC: WOUNDCARE 03:25 | PROVIDERS: ATTEND Nurse Practitioner Family | DX: E11.621 Type 2 diabetes mellitus with foot ulcer (principal); L97.512 Non-pressure chronic ulcer of other part of right foot with fat layer exposed; L97.522 Non-pressure chronic ulcer of other part of left foot with fat layer exposed; L84 Corns and callosities; L98.9 Disorder of the skin and subcutaneous tissue, unspecified; E11.40 Type 2 diabetes mellitus with diabetic neuropathy, unspecified; E11.610 Type 2 diabetes mellitus with diabetic neuropathic arthropathy; I10 Essential (primary) hypertension; E78.00 Pure hypercholesterolemia, unspecified; M10.9 Gout, unspecified; Z90.710 Acquired absence of both cervix and uterus; Z79.82 Long term (current) use of aspirin; Z79.84 Long term (current) use of oral hypoglycemic drugs; Z79.899 Other long term (current) drug therapy ==

== ENCOUNTER → 2024-06-13 | Outpatient (CLI) | payer OTHER | END | disposition home or self-care (01) | LOC: WOUNDCARE 01:43 | PROVIDERS: ATTEND Nurse Practitioner Family | DX: E11.621 Type 2 diabetes mellitus with foot ulcer (principal); L97.526 Non-pressure chronic ulcer of other part of left foot with bone involvement without evidence of necrosis; L97.512 Non-pressure chronic ulcer of other part of right foot with fat layer exposed; L84 Corns and callosities; L98.9 Disorder of the skin and subcutaneous tissue, unspecified; E11.40 Type 2 diabetes mellitus with diabetic neuropathy, unspecified; E11.610 Type 2 diabetes mellitus with diabetic neuropathic arthropathy; I10 Essential (primary) hypertension; E78.00 Pure hypercholesterolemia, unspecified; M10.9 Gout, unspecified; Z90.710 Acquired absence of both cervix and uterus; Z79.82 Long term (current) use of aspirin; Z79.84 Long term (current) use of oral hypoglycemic drugs; Z79.899 Other long term (current) drug therapy ==

== ENCOUNTER → 2024-06-19 | Outpatient (CLI) | payer OTHER | END | disposition home or self-care (01) | LOC: WOUNDCARE 02:09 | PROVIDERS: ATTEND Nurse Practitioner Primary Care | DX: E11.621 Type 2 diabetes mellitus with foot ulcer (principal); L97.522 Non-pressure chronic ulcer of other part of left foot with fat layer exposed; L97.512 Non-pressure chronic ulcer of other part of right foot with fat layer exposed; L84 Corns and callosities; L98.9 Disorder of the skin and subcutaneous tissue, unspecified; E11.40 Type 2 diabetes mellitus with diabetic neuropathy, unspecified; E11.610 Type 2 diabetes mellitus with diabetic neuropathic arthropathy; I10 Essential (primary) hypertension; E78.00 Pure hypercholesterolemia, unspecified; M10.9 Gout, unspecified; Z90.710 Acquired absence of both cervix and uterus; Z79.82 Long term (current) use of aspirin; Z79.84 Long term (current) use of oral hypoglycemic drugs; Z79.899 Other long term (current) drug therapy ==

== ENCOUNTER → 2024-06-29 | Outpatient (CLI) | payer OTHER | END | disposition home or self-care (01) | LOC: WOUNDCARE 01:41 | PROVIDERS: ATTEND Nurse Practitioner Family | DX: E11.621 Type 2 diabetes mellitus with foot ulcer (principal); L97.522 Non-pressure chronic ulcer of other part of left foot with fat layer exposed; L97.512 Non-pressure chronic ulcer of other part of right foot with fat layer exposed; L84 Corns and callosities; L98.9 Disorder of the skin and subcutaneous tissue, unspecified; E11.40 Type 2 diabetes mellitus with diabetic neuropathy, unspecified; E11.610 Type 2 diabetes mellitus with diabetic neuropathic arthropathy; I10 Essential (primary) hypertension; E78.00 Pure hypercholesterolemia, unspecified; M10.9 Gout, unspecified; Z90.710 Acquired absence of both cervix and uterus; Z79.82 Long term (current) use of aspirin; Z79.84 Long term (current) use of oral hypoglycemic drugs; Z79.899 Other long term (current) drug therapy ==

== ENCOUNTER → 2024-07-04 | Outpatient (CLI) | payer OTHER | END | disposition home or self-care (01) | LOC: WOUNDCARE 02:00 | PROVIDERS: ATTEND Nurse Practitioner Family | DX: E11.621 Type 2 diabetes mellitus with foot ulcer (principal); L97.522 Non-pressure chronic ulcer of other part of left foot with fat layer exposed; L97.512 Non-pressure chronic ulcer of other part of right foot with fat layer exposed; L84 Corns and callosities; L98.9 Disorder of the skin and subcutaneous tissue, unspecified; E11.40 Type 2 diabetes mellitus with diabetic neuropathy, unspecified; E11.610 Type 2 diabetes mellitus with diabetic neuropathic arthropathy; I10 Essential (primary) hypertension; E78.00 Pure hypercholesterolemia, unspecified; M10.9 Gout, unspecified; Z90.710 Acquired absence of both cervix and uterus; Z79.82 Long term (current) use of aspirin; Z79.84 Long term (current) use of oral hypoglycemic drugs; Z79.899 Other long term (current) drug therapy ==

== ENCOUNTER → 2024-07-11 | Outpatient (CLI) | payer OTHER | END | disposition home or self-care (01) | LOC: WOUNDCARE 02:34 | PROVIDERS: ATTEND Nurse Practitioner Family | DX: E11.621 Type 2 diabetes mellitus with foot ulcer (principal); L97.522 Non-pressure chronic ulcer of other part of left foot with fat layer exposed; L97.512 Non-pressure chronic ulcer of other part of right foot with fat layer exposed; L84 Corns and callosities; L98.9 Disorder of the skin and subcutaneous tissue, unspecified; E11.40 Type 2 diabetes mellitus with diabetic neuropathy, unspecified; E11.610 Type 2 diabetes mellitus with diabetic neuropathic arthropathy; I10 Essential (primary) hypertension; E78.00 Pure hypercholesterolemia, unspecified; M10.9 Gout, unspecified; Z90.710 Acquired absence of both cervix and uterus; Z79.82 Long term (current) use of aspirin; Z79.84 Long term (current) use of oral hypoglycemic drugs; Z79.899 Other long term (current) drug therapy ==

== ENCOUNTER → 2024-07-18 | Outpatient (CLI) | payer OTHER | END | disposition home or self-care (01) | LOC: WOUNDCARE 01:48 | PROVIDERS: ATTEND Nurse Practitioner Family | DX: E11.621 Type 2 diabetes mellitus with foot ulcer (principal); L97.522 Non-pressure chronic ulcer of other part of left foot with fat layer exposed; L97.512 Non-pressure chronic ulcer of other part of right foot with fat layer exposed; L84 Corns and callosities; L98.9 Disorder of the skin and subcutaneous tissue, unspecified; E11.40 Type 2 diabetes mellitus with diabetic neuropathy, unspecified; E11.610 Type 2 diabetes mellitus with diabetic neuropathic arthropathy; I10 Essential (primary) hypertension; E78.00 Pure hypercholesterolemia, unspecified; M10.9 Gout, unspecified; Z90.710 Acquired absence of both cervix and uterus; Z79.82 Long term (current) use of aspirin; Z79.84 Long term (current) use of oral hypoglycemic drugs; Z79.899 Other long term (current) drug therapy ==

== ENCOUNTER → 2024-07-25 | Outpatient (CLI) | payer OTHER | END | disposition home or self-care (01) | LOC: WOUNDCARE 01:57 | PROVIDERS: ATTEND Nurse Practitioner Family | DX: E11.621 Type 2 diabetes mellitus with foot ulcer (principal); L97.522 Non-pressure chronic ulcer of other part of left foot with fat layer exposed; L97.512 Non-pressure chronic ulcer of other part of right foot with fat layer exposed; E11.40 Type 2 diabetes mellitus with diabetic neuropathy, unspecified; E11.610 Type 2 diabetes mellitus with diabetic neuropathic arthropathy; L98.9 Disorder of the skin and subcutaneous tissue, unspecified; L84 Corns and callosities; I10 Essential (primary) hypertension; E78.00 Pure hypercholesterolemia, unspecified; M10.9 Gout, unspecified; Z90.710 Acquired absence of both cervix and uterus ==

== ENCOUNTER → 2024-08-01 | Outpatient (CLI) | payer OTHER | END | disposition home or self-care (01) | LOC: WOUNDCARE 01:23 | PROVIDERS: ATTEND Nurse Practitioner Family | DX: E11.621 Type 2 diabetes mellitus with foot ulcer (principal); L97.522 Non-pressure chronic ulcer of other part of left foot with fat layer exposed; L97.512 Non-pressure chronic ulcer of other part of right foot with fat layer exposed; L84 Corns and callosities; L98.9 Disorder of the skin and subcutaneous tissue, unspecified; E11.40 Type 2 diabetes mellitus with diabetic neuropathy, unspecified; E11.610 Type 2 diabetes mellitus with diabetic neuropathic arthropathy; I10 Essential (primary) hypertension; E78.00 Pure hypercholesterolemia, unspecified; M10.9 Gout, unspecified; Z90.710 Acquired absence of both cervix and uterus; Z79.82 Long term (current) use of aspirin; Z79.84 Long term (current) use of oral hypoglycemic drugs; Z79.899 Other long term (current) drug therapy ==

== ENCOUNTER → 2024-08-08 | Outpatient (CLI) | payer OTHER | END | disposition home or self-care (01) | LOC: WOUNDCARE 00:23 | PROVIDERS: ATTEND Nurse Practitioner Family | DX: E11.621 Type 2 diabetes mellitus with foot ulcer (principal); L97.522 Non-pressure chronic ulcer of other part of left foot with fat layer exposed; L97.512 Non-pressure chronic ulcer of other part of right foot with fat layer exposed; L84 Corns and callosities; L98.9 Disorder of the skin and subcutaneous tissue, unspecified; E11.40 Type 2 diabetes mellitus with diabetic neuropathy, unspecified; E11.610 Type 2 diabetes mellitus with diabetic neuropathic arthropathy; I10 Essential (primary) hypertension; E78.00 Pure hypercholesterolemia, unspecified; M10.9 Gout, unspecified; Z90.710 Acquired absence of both cervix and uterus; Z79.82 Long term (current) use of aspirin; Z79.84 Long term (current) use of oral hypoglycemic drugs; Z79.899 Other long term (current) drug therapy ==

== ENCOUNTER → 2024-08-15 | Outpatient (CLI) | payer OTHER | END | disposition home or self-care (01) | LOC: WOUNDCARE 08-14 05:23 | PROVIDERS: ATTEND Nurse Practitioner Family | DX: E11.621 Type 2 diabetes mellitus with foot ulcer (principal); L97.522 Non-pressure chronic ulcer of other part of left foot with fat layer exposed; L97.512 Non-pressure chronic ulcer of other part of right foot with fat layer exposed; L84 Corns and callosities; L98.9 Disorder of the skin and subcutaneous tissue, unspecified; E11.40 Type 2 diabetes mellitus with diabetic neuropathy, unspecified; E11.610 Type 2 diabetes mellitus with diabetic neuropathic arthropathy; I10 Essential (primary) hypertension; E78.00 Pure hypercholesterolemia, unspecified; M10.9 Gout, unspecified; Z90.710 Acquired absence of both cervix and uterus; Z79.82 Long term (current) use of aspirin; Z79.84 Long term (current) use of oral hypoglycemic drugs; Z79.899 Other long term (current) drug therapy ==

== ENCOUNTER → 2024-08-22 | Outpatient (CLI) | payer OTHER | END | disposition home or self-care (01) | LOC: WOUNDCARE 01:40 | PROVIDERS: ATTEND Nurse Practitioner Family | DX: E11.621 Type 2 diabetes mellitus with foot ulcer (principal); L97.522 Non-pressure chronic ulcer of other part of left foot with fat layer exposed; L97.512 Non-pressure chronic ulcer of other part of right foot with fat layer exposed; L84 Corns and callosities; L98.9 Disorder of the skin and subcutaneous tissue, unspecified; E11.40 Type 2 diabetes mellitus with diabetic neuropathy, unspecified; E11.610 Type 2 diabetes mellitus with diabetic neuropathic arthropathy; I10 Essential (primary) hypertension; E78.00 Pure hypercholesterolemia, unspecified; M10.9 Gout, unspecified; Z90.710 Acquired absence of both cervix and uterus; Z79.82 Long term (current) use of aspirin; Z79.84 Long term (current) use of oral hypoglycemic drugs; Z79.899 Other long term (current) drug therapy ==

== ENCOUNTER → 2024-08-29 | Outpatient (CLI) | payer OTHER | END | disposition home or self-care (01) | LOC: WOUNDCARE 01:33 | PROVIDERS: ATTEND Nurse Practitioner Family | DX: E11.621 Type 2 diabetes mellitus with foot ulcer (principal); L97.522 Non-pressure chronic ulcer of other part of left foot with fat layer exposed; L97.512 Non-pressure chronic ulcer of other part of right foot with fat layer exposed; L84 Corns and callosities; L98.9 Disorder of the skin and subcutaneous tissue, unspecified; E11.40 Type 2 diabetes mellitus with diabetic neuropathy, unspecified; E11.610 Type 2 diabetes mellitus with diabetic neuropathic arthropathy; I10 Essential (primary) hypertension; E78.00 Pure hypercholesterolemia, unspecified; M10.9 Gout, unspecified; Z90.710 Acquired absence of both cervix and uterus; Z79.82 Long term (current) use of aspirin; Z79.84 Long term (current) use of oral hypoglycemic drugs; Z79.899 Other long term (current) drug therapy ==

== ENCOUNTER → 2024-09-05 | Outpatient (CLI) | payer OTHER ==
[~2024-09-05] MED LIST changes: +AMOX-CLAV 875-1 EACH PO
== END | disposition home or self-care (01) ==
LOC: WOUNDCARE 00:36
PROVIDERS: ATTEND Nurse Practitioner Family
DX: E11.621 Type 2 diabetes mellitus with foot ulcer (principal); L97.522 Non-pressure chronic ulcer of other part of left foot with fat layer exposed; L97.512 Non-pressure chronic ulcer of other part of right foot with fat layer exposed; E11.40 Type 2 diabetes mellitus with diabetic neuropathy, unspecified; E11.610 Type 2 diabetes mellitus with diabetic neuropathic arthropathy; L98.9 Disorder of the skin and subcutaneous tissue, unspecified; L84 Corns and callosities; E78.00 Pure hypercholesterolemia, unspecified; I10 Essential (primary) hypertension; M10.9 Gout, unspecified; Z90.710 Acquired absence of both cervix and uterus

== ENCOUNTER 2024-09-06 12:48 | Emergency (ER) | payer OTHER ==
[~2024-09-06] VITALS: Wt 106.6 kg
[~2024-09-06 12:48] MED LIST changes: -AMOX-CLAV 875-1 EACH PO
[2024-09-06 13:48] LABS: BASO % 0.5 % (0.0-1.0); EOS % 0.7 % (1.0-4.0); HEMATOCRIT 38.9 % (37.0-47.0); LYMPH # 1.5 10*3/uL (1.3-4.4); LYMPH % 25.1 % (27.0-41.0); MEAN CORPUSCULAR HGB 25.2 pg (27.0-31.0); MEAN CORPUSCULAR HGB CONC 31.1 g/dl (33.0-37.0); MEAN PLATELET VOLUME 8.6 fl (9.6-12.3); MONO # 0.3 10*3/uL (0.1-1.0); MONO % 5.5 % (3.0-9.0); NEUT % 67.9 % (47.0-73.0); PLATELET COUNT AUTOMATED 181 10*3/uL (130-400); RED CELL DISTRI WIDTH 15.8 % (0-14.5); WHITE BLOOD COUNT 5.9 10*3/uL (4.8-10.8)
[2024-09-06 14:08] LABS: BUN 10 mg/dl (9-23); CHLORIDE 102 mmol/L (98-107); POTASSIUM 3.3 mmol/L (3.4-5.1)
[2024-09-06] MEDS ORDERED: POTASSIUM CHLORIDE 20 MEQ TAB PO ONE (15:05)
[2024-09-06] MEDS ORDERED: AMOX-CLAV 875-1 EACH PO (15:05)
== END 2024-09-06 15:12 | disposition home or self-care (01) ==
LOC: ED 12:48
DX: J32.9 Chronic sinusitis, unspecified (principal); Z20.822 Contact with and (suspected) exposure to COVID-19; E11.9 Type 2 diabetes mellitus without complications; Z91.041 Radiographic dye allergy status; Z91.048 Other nonmedicinal substance allergy status; Z79.2 Long term (current) use of antibiotics; Z79.899 Other long term (current) drug therapy; Z79.84 Long term (current) use of oral hypoglycemic drugs; Z79.82 Long term (current) use of aspirin; Z90.710 Acquired absence of both cervix and uterus; Z90.89 Acquired absence of other organs

== ENCOUNTER → 2024-09-19 | Outpatient (CLI) | payer OTHER ==
[~2024-09-19] MED LIST changes: +AMOX-CLAV 875-1 EACH PO
== END | disposition home or self-care (01) ==
LOC: WOUNDCARE 02:26
PROVIDERS: ATTEND Nurse Practitioner Family
DX: E11.621 Type 2 diabetes mellitus with foot ulcer (principal); L97.522 Non-pressure chronic ulcer of other part of left foot with fat layer exposed; L97.512 Non-pressure chronic ulcer of other part of right foot with fat layer exposed; L84 Corns and callosities; E11.40 Type 2 diabetes mellitus with diabetic neuropathy, unspecified; E11.610 Type 2 diabetes mellitus with diabetic neuropathic arthropathy; L98.9 Disorder of the skin and subcutaneous tissue, unspecified; M10.9 Gout, unspecified; I10 Essential (primary) hypertension; E78.00 Pure hypercholesterolemia, unspecified; Z90.710 Acquired absence of both cervix and uterus

== ENCOUNTER 2024-10-03 13:27 | Inpatient (IN) | payer OTHER ==
[~2024-10-03] VITALS: Ht 170.1 cm; Wt 107.6 kg
[~2024-10-03 13:27] MED LIST changes: -AMITRIPTYLINE50 MG PO; -B COMPLEX1 EACH PO; -CLARITIN10 MG PO; -METFORMIN HYD1000 MG PO; -PRILOSEC20 M1 PO; -RAMIPRIL10 MG PO; -TRULICITY1.5 MG/0.5 SC
[2024-10-03 13:39] VITALS: BP 137/61
[2024-10-03 14:57] LABS: HEMATOCRIT 40.4 % (37.0-47.0); MANUAL DIFF REFLEX YES; MEAN CELL VOLUME 81.5 fl (81.0-99.0); MEAN CORPUSCULAR HGB 25.4 pg (27.0-31.0); MEAN CORPUSCULAR HGB CONC 31.2 g/dl (33.0-37.0); MEAN PLATELET VOLUME 9.3 fl (9.6-12.3); PLATELET COUNT AUTOMATED 273 10*3/uL (130-400); RED BLOOD COUNT 4.96 10*6/uL (4.10-5.10); RED CELL DISTRI WIDTH 15.6 % (0-14.5); WHITE BLOOD COUNT 13.2 10*3/uL (4.8-10.8)
[2024-10-03 15:18] LABS: BUN 10 mg/dl (9-23); CHLORIDE 104 mmol/L (98-107); POTASSIUM 4.1 mmol/L (3.4-5.1)
[2024-10-03 15:19] LABS: PLATELET SUFFICIENCY NORMAL (NORMAL); TOTAL CELLS COUNTED 100 #CELLS
[2024-10-03 15:20] LABS: POLYCHROMASIA SLIGHT
[2024-10-03] MEDS ORDERED: Piperacillin Sodium/Tazobact 50 ML IV ONE (15:45)
[2024-10-03] MEDS ORDERED: Vancomycin Hydrochloride 250 ML IV ONE (15:45)
[2024-10-03] MEDS ORDERED: Ondansetron Hydrochloride 4 MG/2 ML VIAL IV PRN (16:50)
[2024-10-03] MEDS ORDERED: Magnesium Hydroxide 30 ML UDC PO PRN (16:50)
[2024-10-03] MEDS ORDERED: ACETAMINOPHEN 325 MG TAB PO PRN (16:50)
[2024-10-03] MEDS ORDERED: BISACODYL 5 MG TAB PO PRN (16:50)
[2024-10-03] MEDS ORDERED: Acetaminophen/Hydrocodone 5 MG/325 MG TABLET PO PRN (16:50)
[2024-10-03] MEDS ORDERED: DEXTROSE 10 % IN WATER 250 ML IV PRN (17:25)
[2024-10-03 19:54] VITALS: BP 113/57
[2024-10-03] MEDS ORDERED: Piperacillin Sodium/Tazobact 50 ML IV SCH (22:00)
[2024-10-03] MEDS ORDERED: INSULIN LISPRO 1 UNIT/0.01 ML SQ SCH (22:00)
[2024-10-04 01:00] VITALS: BP 122/70
[2024-10-04] MEDS ORDERED: VANCOMYCIN/WATER FOR INJ (PEG) 250 ML IV SCH (02:00)
[2024-10-04 05:23] LABS: ALKALINE PHOSPHATASE 120 U/L (46-116); BUN 9 mg/dl (9-23); CHLORIDE 105 mmol/L (98-107); CHOLESTEROL 164 mg/dL (<200); LDL CHOLESTEROL 83 mg/dL (9-159); POTASSIUM 3.9 mmol/L (3.4-5.1); SGPT/ALT 45 U/L (5-49); TOTAL PROTEIN 6.4 gm/dL (6.0-8.0); TRIGLYCERIDES 207 mg/dl (<150)
[2024-10-04 06:12] LABS: HEMATOCRIT 37.8 % (37.0-47.0); MEAN CELL VOLUME 81.6 fl (81.0-99.0); MEAN CORPUSCULAR HGB 25.9 pg (27.0-31.0); MEAN CORPUSCULAR HGB CONC 31.7 g/dl (33.0-37.0); MEAN PLATELET VOLUME 9.7 fl (9.6-12.3); PLATELET COUNT AUTOMATED 231 10*3/uL (130-400); RED BLOOD COUNT 4.63 10*6/uL (4.10-5.10); WHITE BLOOD COUNT 12.1 10*3/uL (4.8-10.8)
[2024-10-04 06:19] LABS: MANUAL DIFF REFLEX YES
[2024-10-04 06:59] VITALS: BP 124/68
[2024-10-04 07:48] LABS: BASOPHILS 1 % (0-1); PLATELET SUFFICIENCY NORMAL (NORMAL); TOTAL CELLS COUNTED 100 #CELLS
[2024-10-04 09:28] VITALS: BP 122/66
[2024-10-04] MEDS ORDERED: Enoxaparin Sodium 40 MG/0.4 ML SYR SC SCH (10:00)
[2024-10-04 14:30] VITALS: BP 142/81
[2024-10-04] MEDS ORDERED: RAMIPRIL10 MG PO (14:48)
[2024-10-04] MEDS ORDERED: AMITRIPTYLINE50 MG PO (14:51)
[2024-10-04] MEDS ORDERED: METFORMIN HYD1000 MG PO (14:52)
[2024-10-04] MEDS ORDERED: TRULICITY1.5 MG/0.5 SC (14:53)
[2024-10-04] MEDS ORDERED: PRILOSEC20 M1 PO (14:54)
[2024-10-04] MEDS ORDERED: B COMPLEX1 EACH PO (14:54)
[2024-10-04] MEDS ORDERED: CLARITIN10 MG PO (14:55)
[2024-10-04 16:00] VITALS: BP 163/88
[2024-10-04] MEDS ORDERED: METOPROLOL SUCCINATE XR 50 MG TAB PO ONE (17:55)
[2024-10-04] MEDS ORDERED: SODIUM CHLORIDE 0.9% 500 ML IV SCH (18:05)
[2024-10-04 20:00] VITALS: BP 145/77
[2024-10-04] MEDS ORDERED: ATORVASTATIN CALCIUM 10 MG TAB PO SCH (22:00)
[2024-10-04] MEDS ORDERED: Amitriptyline Hydrochloride 50 MG TAB PO SCH (22:00)
[2024-10-04] MEDS ORDERED: LORATADINE 10 MG TAB PO SCH (22:00)
[2024-10-05] VITALS (8 sets, daily range): BP systolic 124–166; BP diastolic 48–97
[2024-10-05 06:06] LABS: HEMATOCRIT 37.4 % (37.0-47.0); MEAN CORPUSCULAR HGB 25.3 pg (27.0-31.0); MEAN CORPUSCULAR HGB CONC 31.3 g/dl (33.0-37.0); MEAN PLATELET VOLUME 9.7 fl (9.6-12.3); PLATELET COUNT AUTOMATED 226 10*3/uL (130-400); RED BLOOD COUNT 4.62 10*6/uL (4.10-5.10); RED CELL DISTRI WIDTH 16.1 % (0-14.5); WHITE BLOOD COUNT 11.4 10*3/uL (4.8-10.8)
[2024-10-05 06:15] LABS: MANUAL DIFF REFLEX YES
[2024-10-05 06:46] LABS: TOTAL CELLS COUNTED 100 #CELLS
[2024-10-05 06:47] LABS: BURR CELLS MODERATE; OVALOCYTES FEW; PLATELET SUFFICIENCY NORMAL (NORMAL); POLYCHROMASIA SLIGHT; ROULEAUX SLIGHT; TARGET CELLS FEW
[2024-10-05 07:39] LABS: ALKALINE PHOSPHATASE 113 U/L (46-116); BUN 12 mg/dl (9-23); CHLORIDE 105 mmol/L (98-107); POTASSIUM 4.4 mmol/L (3.4-5.1); SGPT/ALT 48 U/L (5-49); TOTAL PROTEIN 6.1 gm/dL (6.0-8.0)
[2024-10-05] MEDS ORDERED: Lactated Ringer's Solution 1,000 ML IV ONE (08:37)
[2024-10-05] MEDS ORDERED: Bupivacaine Hydrochloride/Ep 10 ML VIAL ONE (08:43)
[2024-10-05] MEDS ORDERED: ACETAMINOPHEN 100 ML IV ONE (08:53)
[2024-10-05] MEDS ORDERED: Ropivacaine Hydrochloride 5 MG/ML 20 ML AMP IJ ONE (08:53)
[2024-10-05] MEDS ORDERED: ALLOPURINOL 300 MG TAB PO SCH (10:00)
[2024-10-05] MEDS ORDERED: LISINOPRIL 20 MG TAB PO SCH (10:00)
[2024-10-05] MEDS ORDERED: METOPROLOL SUCCINATE XR 100 MG TAB PO SCH (10:00)
[2024-10-05] MEDS ORDERED: Midazolam Hydrochloride 2 MG/2 ML VIAL IV ONE (13:18)
[2024-10-05] MEDS ORDERED: Lidocaine Hydrochloride 2% 5 ML SDV IV ONE (13:18)
[2024-10-05] MEDS ORDERED: PROPOFOL 200 MG/20 ML VIAL IV ONE (13:18)
[2024-10-06] VITALS: BP 134/69
[2024-10-06 06:33] LABS: HEMATOCRIT 39.7 % (37.0-47.0); MEAN CELL VOLUME 82.7 fl (81.0-99.0); MEAN CORPUSCULAR HGB 25.4 pg (27.0-31.0); MEAN CORPUSCULAR HGB CONC 30.7 g/dl (33.0-37.0); MEAN PLATELET VOLUME 9.2 fl (9.6-12.3); PLATELET COUNT AUTOMATED 243 10*3/uL (130-400); RED CELL DISTRI WIDTH 15.7 % (0-14.5); WHITE BLOOD COUNT 10.7 10*3/uL (4.8-10.8)
[2024-10-06 06:46] LABS: MANUAL DIFF REFLEX YES
[2024-10-06 06:54] LABS: ALKALINE PHOSPHATASE 116 U/L (46-116); BUN 12 mg/dl (9-23); CHLORIDE 105 mmol/L (98-107); POTASSIUM 4.2 mmol/L (3.4-5.1); SGPT/ALT 47 U/L (5-49); TOTAL PROTEIN 6.7 gm/dL (6.0-8.0)
[2024-10-06 07:36] LABS: ATYPICAL LYMPHS 3 % (0-0); PLATELET SUFFICIENCY NORMAL (NORMAL); TOTAL CELLS COUNTED 100 #CELLS
[2024-10-06 08:00] VITALS: BP 148/68
[2024-10-06] MEDS ORDERED: Enoxaparin Sodium 40 MG/0.4 ML SYR SC SCH (10:00)
[2024-10-06 12:00] VITALS: BP 130/60
[2024-10-06 13:06] LABS: ACID FAST SPEC PROCESSING Tissue Grinding (.)
[2024-10-06 13:06] LABS: ACID FAST SPEC PROCESSING Tissue Grinding (.)
[2024-10-06 16:00] VITALS: BP 141/89
[2024-10-06 20:00] VITALS: BP 134/63
[2024-10-07] VITALS: BP 133/75
[2024-10-07 08:00] VITALS: BP 139/88
[2024-10-07 12:00] VITALS: BP 152/76
[2024-10-07 16:00] VITALS: BP 140/71
[2024-10-07 20:00] VITALS: BP 134/65
[2024-10-08 06:10] LABS: BUN 14 mg/dl (9-23); CHLORIDE 107 mmol/L (98-107); POTASSIUM 3.9 mmol/L (3.4-5.1)
[2024-10-08 06:21] LABS: HEMATOCRIT 37.5 % (37.0-47.0); MEAN CELL VOLUME 81.2 fl (81.0-99.0); MEAN CORPUSCULAR HGB 26.2 pg (27.0-31.0); MEAN CORPUSCULAR HGB CONC 32.3 g/dl (33.0-37.0); MEAN PLATELET VOLUME 9.6 fl (9.6-12.3); PLATELET COUNT AUTOMATED 231 10*3/uL (130-400); RED BLOOD COUNT 4.62 10*6/uL (4.10-5.10); RED CELL DISTRI WIDTH 15.7 % (0-14.5); WHITE BLOOD COUNT 11.4 10*3/uL (4.8-10.8)
[2024-10-08 06:30] LABS: MANUAL DIFF REFLEX YES
[2024-10-08 07:08] LABS: OVALOCYTES FEW; POLYCHROMASIA SLIGHT; TOTAL CELLS COUNTED 100 #CELLS
[2024-10-08 07:09] LABS: PLATELET SUFFICIENCY NORMAL (NORMAL); ROULEAUX SLIGHT
[2024-10-08 08:00] VITALS: BP 124/61; BP 143/75
[2024-10-08 12:00] VITALS: BP 137/81
[2024-10-08 16:00] VITALS: BP 129/61
[2024-10-08 20:00] VITALS: BP 130/84
[2024-10-08] MEDS ORDERED: DALVANCE500 MG IV (23:17)
[2024-10-08] MEDS ORDERED: METRONIDAZOLE500 M1 PO (23:17)
[2024-10-08] MEDS ORDERED: CEFDINIR300 MG PO (23:17)
[2024-10-09] VITALS: BP 124/72
[2024-10-09 06:20] LABS: BASO # 0.1 10*3/uL (0.0-0.1); BASO % 0.5 % (0.0-1.0); EOS # 0.2 10*3/uL (0.0-0.4); EOS % 2.4 % (1.0-4.0); HEMATOCRIT 36.4 % (37.0-47.0); MEAN CELL VOLUME 80.9 fl (81.0-99.0); MEAN CORPUSCULAR HGB 25.6 pg (27.0-31.0); MEAN CORPUSCULAR HGB CONC 31.6 g/dl (33.0-37.0); MEAN PLATELET VOLUME 9.4 fl (9.6-12.3); MONO # 0.5 10*3/uL (0.1-1.0); MONO % 4.5 % (3.0-9.0); NEUT # 4.6 10*3/uL (2.3-7.9); NEUT % 45.4 % (47.0-73.0); PLATELET COUNT AUTOMATED 222 10*3/uL (130-400); RED CELL DISTRI WIDTH 15.7 % (0-14.5); WHITE BLOOD COUNT 10.2 10*3/uL (4.8-10.8)
[2024-10-09 06:27] LABS: BUN 15 mg/dl (9-23); CHLORIDE 108 mmol/L (98-107); POTASSIUM 3.8 mmol/L (3.4-5.1)
[2024-10-09 08:00] VITALS: BP 160/70
[2024-10-09] MEDS ORDERED: DALVANCE500 MG IV (11:28)
[2024-10-09 12:00] VITALS: BP 128/67
== END 2024-10-09 14:45 | disposition home or self-care (01) | DRG 496 ==
LOC: ED 13:27 → EDHOLD 16:03 → 4E 16:03
PROVIDERS: Internal Medicine; Occupational Therapist; Orthopaedic Surgery; ADMIT Internal Medicine; ATTEND Internal Medicine
PROC: 0QPP04Z Removal of Internal Fixation Device from Left Metatarsal, Open Approach (ICD-10-PCS; principal; 2024-10-05)
PROC: 0QPP04Z Removal of Internal Fixation Device from Left Metatarsal, Open Approach (ICD-10-PCS; 2024-10-05)
PROC: 3E0T3BZ Introduction of Anesthetic Agent into Peripheral Nerves and Plexi, Percutaneous Approach (ICD-10-PCS; 2024-10-05)
DX: T84.7XXA Infection and inflammatory reaction due to other internal orthopedic prosthetic devices, implants and grafts, initial encounter (principal); L03.116 Cellulitis of left lower limb; M86.8X7 Other osteomyelitis, ankle and foot; L97.528 Non-pressure chronic ulcer of other part of left foot with other specified severity; E11.628 Type 2 diabetes mellitus with other skin complications; M10.9 Gout, unspecified; E66.01 Morbid (severe) obesity due to excess calories; E11.621 Type 2 diabetes mellitus with foot ulcer; M14.672 Charcot's joint, left ankle and foot; E11.69 Type 2 diabetes mellitus with other specified complication; B95.61 Methicillin susceptible Staphylococcus aureus infection as the cause of diseases classified elsewhere; Z20.822 Contact with and (suspected) exposure to COVID-19; I10 Essential (primary) hypertension; E11.40 Type 2 diabetes mellitus with diabetic neuropathy, unspecified; E11.65 Type 2 diabetes mellitus with hyperglycemia; E78.5 Hyperlipidemia, unspecified; Y83.8 Other surgical procedures as the cause of abnormal reaction of the patient, or of later complication, without mention of misadventure at the time of the procedure; Y92.89 Other specified places as the place of occurrence of the external cause; Z90.710 Acquired absence of both cervix and uterus; Z82.49 Family history of ischemic heart disease and other diseases of the circulatory system; Z91.041 Radiographic dye allergy status; Z79.82 Long term (current) use of aspirin; Z79.899 Other long term (current) drug therapy

== ENCOUNTER → 2024-10-03 | Outpatient (CLI) | payer OTHER ==
[~2024-10-03] MED LIST changes: +AMITRIPTYLINE50 MG PO; +B COMPLEX1 EACH PO; +CLARITIN10 MG PO; +METFORMIN HCL500 M3 PO; +METFORMIN HYD1000 MG PO; -METFORMIN1000 MG PO; +PRILOSEC20 M1 PO; +RAMIPRIL10 MG PO; +TRULICITY1.5 MG/0.5 SC
== END | disposition home or self-care (01) ==
LOC: WOUNDCARE 04:40
PROVIDERS: ATTEND Nurse Practitioner Family
DX: E11.621 Type 2 diabetes mellitus with foot ulcer (principal); L97.522 Non-pressure chronic ulcer of other part of left foot with fat layer exposed; L97.512 Non-pressure chronic ulcer of other part of right foot with fat layer exposed; L98.9 Disorder of the skin and subcutaneous tissue, unspecified; E11.610 Type 2 diabetes mellitus with diabetic neuropathic arthropathy; E11.40 Type 2 diabetes mellitus with diabetic neuropathy, unspecified; E78.00 Pure hypercholesterolemia, unspecified; I10 Essential (primary) hypertension; M10.9 Gout, unspecified; Z90.710 Acquired absence of both cervix and uterus

== ENCOUNTER → 2024-10-17 | Outpatient (CLI) | payer OTHER ==
[~2024-10-17] MED LIST changes: +AMITRIPTYLINE50 MG PO; +B COMPLEX1 EACH PO; +CEFDINIR300 MG PO; +CLARITIN10 MG PO; +DALVANCE500 MG IV; +METFORMIN HYD1000 MG PO; +METRONIDAZOLE500 M1 PO; +PRILOSEC20 M1 PO; +RAMIPRIL10 MG PO; +TRULICITY1.5 MG/0.5 SC
== END | disposition home or self-care (01) ==
LOC: WOUNDCARE 05:12
PROVIDERS: ATTEND Nurse Practitioner Family
DX: E11.621 Type 2 diabetes mellitus with foot ulcer (principal); L97.522 Non-pressure chronic ulcer of other part of left foot with fat layer exposed; L97.512 Non-pressure chronic ulcer of other part of right foot with fat layer exposed; L84 Corns and callosities; E11.40 Type 2 diabetes mellitus with diabetic neuropathy, unspecified; E11.610 Type 2 diabetes mellitus with diabetic neuropathic arthropathy; L98.9 Disorder of the skin and subcutaneous tissue, unspecified; I10 Essential (primary) hypertension; E78.00 Pure hypercholesterolemia, unspecified; M10.9 Gout, unspecified; Z90.710 Acquired absence of both cervix and uterus; Z79.82 Long term (current) use of aspirin; Z79.84 Long term (current) use of oral hypoglycemic drugs; Z79.899 Other long term (current) drug therapy

== ENCOUNTER → 2024-11-13 | Outpatient (CLI) | payer OTHER | END | disposition home or self-care (01) | LOC: ORTHO | PROVIDERS: ATTEND Orthopaedic Surgery | DX: M77.32 Calcaneal spur, left foot (principal); L03.116 Cellulitis of left lower limb ==

== ENCOUNTER → 2024-12-26 | Outpatient (CLI) | payer OTHER | END | disposition home or self-care (01) | LOC: WOUNDCARE 02:15 | PROVIDERS: ATTEND Nurse Practitioner Family | DX: E11.621 Type 2 diabetes mellitus with foot ulcer (principal); L97.522 Non-pressure chronic ulcer of other part of left foot with fat layer exposed; L84 Corns and callosities; L60.2 Onychogryphosis; E11.40 Type 2 diabetes mellitus with diabetic neuropathy, unspecified; M14.672 Charcot's joint, left ankle and foot; E78.00 Pure hypercholesterolemia, unspecified; I10 Essential (primary) hypertension; B35.1 Tinea unguium; M10.9 Gout, unspecified; Z90.710 Acquired absence of both cervix and uterus; Z98.890 Other specified postprocedural states; Z79.84 Long term (current) use of oral hypoglycemic drugs; Z79.82 Long term (current) use of aspirin; Z79.899 Other long term (current) drug therapy ==

== ENCOUNTER → 2025-01-02 | Outpatient (CLI) | payer OTHER | END | disposition home or self-care (01) | LOC: WOUNDCARE 01:15 | PROVIDERS: ATTEND Nurse Practitioner Family | DX: E11.621 Type 2 diabetes mellitus with foot ulcer (principal); L97.522 Non-pressure chronic ulcer of other part of left foot with fat layer exposed; E11.40 Type 2 diabetes mellitus with diabetic neuropathy, unspecified; M14.672 Charcot's joint, left ankle and foot; L60.2 Onychogryphosis; L84 Corns and callosities; B35.1 Tinea unguium; I10 Essential (primary) hypertension; E78.00 Pure hypercholesterolemia, unspecified; M10.9 Gout, unspecified; Z90.710 Acquired absence of both cervix and uterus; Z98.890 Other specified postprocedural states; Z79.84 Long term (current) use of oral hypoglycemic drugs; Z79.82 Long term (current) use of aspirin; Z79.899 Other long term (current) drug therapy ==

== ENCOUNTER → 2025-01-16 | Outpatient (CLI) | payer OTHER | END | disposition home or self-care (01) | LOC: WOUNDCARE 01:01 | PROVIDERS: ATTEND Nurse Practitioner Family | DX: E11.621 Type 2 diabetes mellitus with foot ulcer (principal); L97.522 Non-pressure chronic ulcer of other part of left foot with fat layer exposed; E11.40 Type 2 diabetes mellitus with diabetic neuropathy, unspecified; M14.672 Charcot's joint, left ankle and foot; L60.2 Onychogryphosis; L84 Corns and callosities; B35.1 Tinea unguium; I10 Essential (primary) hypertension; E78.00 Pure hypercholesterolemia, unspecified; M10.9 Gout, unspecified; Z90.710 Acquired absence of both cervix and uterus; Z98.890 Other specified postprocedural states; Z79.84 Long term (current) use of oral hypoglycemic drugs; Z79.82 Long term (current) use of aspirin; Z79.899 Other long term (current) drug therapy ==

== ENCOUNTER → 2025-01-22 | Outpatient (CLI) | payer OTHER | END | disposition home or self-care (01) | LOC: ORTHO 03:29 | PROVIDERS: ATTEND Orthopaedic Surgery | DX: M19.072 Primary osteoarthritis, left ankle and foot (principal); M21.6X2 Other acquired deformities of left foot; M77.32 Calcaneal spur, left foot; L03.116 Cellulitis of left lower limb ==

== ENCOUNTER → 2025-01-30 | Outpatient (CLI) | payer OTHER | END | disposition home or self-care (01) | LOC: WOUNDCARE 01:43 | PROVIDERS: ATTEND Nurse Practitioner Family | DX: E11.621 Type 2 diabetes mellitus with foot ulcer (principal); L97.522 Non-pressure chronic ulcer of other part of left foot with fat layer exposed; L84 Corns and callosities; L60.2 Onychogryphosis; B35.1 Tinea unguium; E11.40 Type 2 diabetes mellitus with diabetic neuropathy, unspecified; M14.672 Charcot's joint, left ankle and foot; M10.9 Gout, unspecified; E78.00 Pure hypercholesterolemia, unspecified; I10 Essential (primary) hypertension; Z90.710 Acquired absence of both cervix and uterus; Z98.890 Other specified postprocedural states; Z79.84 Long term (current) use of oral hypoglycemic drugs; Z79.899 Other long term (current) drug therapy ==

== ENCOUNTER → 2025-02-13 | Outpatient (CLI) | payer OTHER | END | disposition home or self-care (01) | LOC: WOUNDCARE 02:24 | PROVIDERS: ATTEND Nurse Practitioner Family | DX: E11.621 Type 2 diabetes mellitus with foot ulcer (principal); L97.522 Non-pressure chronic ulcer of other part of left foot with fat layer exposed; L84 Corns and callosities; L60.2 Onychogryphosis; B35.1 Tinea unguium; E11.40 Type 2 diabetes mellitus with diabetic neuropathy, unspecified; E11.610 Type 2 diabetes mellitus with diabetic neuropathic arthropathy; I10 Essential (primary) hypertension; I48.92 Unspecified atrial flutter; E78.00 Pure hypercholesterolemia, unspecified; M10.9 Gout, unspecified; Z90.710 Acquired absence of both cervix and uterus; Z98.890 Other specified postprocedural states; Z79.84 Long term (current) use of oral hypoglycemic drugs; Z79.82 Long term (current) use of aspirin; Z79.899 Other long term (current) drug therapy ==

== ENCOUNTER → 2025-03-14 | Outpatient (CLI) | payer OTHER | END | disposition home or self-care (01) | LOC: WOUNDCARE 02:04 | PROVIDERS: ATTEND Nurse Practitioner Family | DX: E11.621 Type 2 diabetes mellitus with foot ulcer (principal); L97.522 Non-pressure chronic ulcer of other part of left foot with fat layer exposed; L84 Corns and callosities; E11.40 Type 2 diabetes mellitus with diabetic neuropathy, unspecified; E11.69 Type 2 diabetes mellitus with other specified complication; M14.672 Charcot's joint, left ankle and foot; L60.2 Onychogryphosis; B35.1 Tinea unguium; I10 Essential (primary) hypertension; I48.91 Unspecified atrial fibrillation; E78.00 Pure hypercholesterolemia, unspecified; M10.9 Gout, unspecified; Z90.710 Acquired absence of both cervix and uterus; Z98.890 Other specified postprocedural states; Z79.82 Long term (current) use of aspirin; Z79.84 Long term (current) use of oral hypoglycemic drugs; Z79.899 Other long term (current) drug therapy ==

== ENCOUNTER → 2025-03-26 | Outpatient (CLI) | payer OTHER | END | disposition home or self-care (01) | LOC: WOUNDCARE 02:55 | PROVIDERS: ATTEND Nurse Practitioner Family | DX: E11.621 Type 2 diabetes mellitus with foot ulcer (principal); L97.522 Non-pressure chronic ulcer of other part of left foot with fat layer exposed; L84 Corns and callosities; E11.40 Type 2 diabetes mellitus with diabetic neuropathy, unspecified; E11.610 Type 2 diabetes mellitus with diabetic neuropathic arthropathy; B35.1 Tinea unguium; L60.2 Onychogryphosis; I10 Essential (primary) hypertension; M10.9 Gout, unspecified; E78.00 Pure hypercholesterolemia, unspecified; I48.92 Unspecified atrial flutter; Z90.710 Acquired absence of both cervix and uterus; Z98.890 Other specified postprocedural states; Z79.84 Long term (current) use of oral hypoglycemic drugs; Z79.82 Long term (current) use of aspirin; Z79.899 Other long term (current) drug therapy ==

== ENCOUNTER → 2025-04-10 | Outpatient (CLI) | payer OTHER | END | disposition home or self-care (01) | LOC: WOUNDCARE 02:25 | PROVIDERS: ATTEND Nurse Practitioner Family | DX: E11.621 Type 2 diabetes mellitus with foot ulcer (principal); L97.522 Non-pressure chronic ulcer of other part of left foot with fat layer exposed; L84 Corns and callosities; E11.40 Type 2 diabetes mellitus with diabetic neuropathy, unspecified; E11.610 Type 2 diabetes mellitus with diabetic neuropathic arthropathy; I10 Essential (primary) hypertension; I48.92 Unspecified atrial flutter; E78.00 Pure hypercholesterolemia, unspecified; M10.9 Gout, unspecified; B35.1 Tinea unguium; L60.2 Onychogryphosis; Z90.710 Acquired absence of both cervix and uterus; Z98.890 Other specified postprocedural states; Z79.84 Long term (current) use of oral hypoglycemic drugs; Z79.82 Long term (current) use of aspirin; Z79.899 Other long term (current) drug therapy ==

== ENCOUNTER → 2025-04-24 | Outpatient (CLI) | payer OTHER | LOC: WOUNDCARE 00:35 | PROVIDERS: ATTEND Nurse Practitioner Family | DX: E11.621 Type 2 diabetes mellitus with foot ulcer (principal); L97.522 Non-pressure chronic ulcer of other part of left foot with fat layer exposed; L97.511 Non-pressure chronic ulcer of other part of right foot limited to breakdown of skin; L84 Corns and callosities; L60.2 Onychogryphosis; B35.1 Tinea unguium; E11.40 Type 2 diabetes mellitus with diabetic neuropathy, unspecified; E11.610 Type 2 diabetes mellitus with diabetic neuropathic arthropathy; I10 Essential (primary) hypertension; E78.00 Pure hypercholesterolemia, unspecified; M10.9 Gout, unspecified; Z90.710 Acquired absence of both cervix and uterus; Z98.890 Other specified postprocedural states; Z79.82 Long term (current) use of aspirin; Z79.899 Other long term (current) drug therapy ==

== ENCOUNTER 2025-05-07 16:10 | Inpatient (IN) | payer OTHER ==
[~2025-05-07] VITALS: Ht 167.6 cm; Wt 104.3 kg
[2025-05-07 16:30] VITALS: BP 145/71
[2025-05-07] MEDS ORDERED: Vancomycin Hydrochloride 250 ML IV ONE (19:35)
[2025-05-07] MEDS ORDERED: Piperacillin Sodium/Tazobact 50 ML IV ONE (19:35)
[2025-05-07 20:15] VITALS: BP 152/73
[2025-05-07] MEDS ORDERED: Ondansetron Hydrochloride 4 MG/2 ML VIAL IV ONE (20:25)
[2025-05-07] MEDS ORDERED: SODIUM CHLORIDE 0.9% 1,000 ML IV ONE (20:25)
[2025-05-07 20:44] LABS: BASO % 0.2 % (0.0-1.0); EOS % 0.1 % (1.0-4.0); MEAN CELL VOLUME 81.5 fl (81.0-99.0); MEAN CORPUSCULAR HGB 25.4 pg (27.0-31.0); MEAN CORPUSCULAR HGB CONC 31.1 g/dl (33.0-37.0); MEAN PLATELET VOLUME 9.3 fl (9.6-12.3); MONO # 0.4 10*3/uL (0.1-1.0); MONO % 2.8 % (3.0-9.0); NEUT # 9.2 10*3/uL (2.3-7.9); NEUT % 73.2 % (47.0-73.0); PLATELET COUNT AUTOMATED 248 10*3/uL (130-400); RED CELL DISTRI WIDTH 15.3 % (0-14.5); WHITE BLOOD COUNT 12.5 10*3/uL (4.8-10.8)
[2025-05-07 21:42] LABS: BUN 14 mg/dl (9-23); CHLORIDE 102 mmol/L (98-107)
[2025-05-07 22:39] LABS: BILIRUBIN Negative (Negative); BLOOD Negative (Negative); CLARITY Clear (Clear); COLOR Yellow (Yellow); GLUCOSE 3+ (Negative); KETONE 3+ (Negative); LEUKO ESTERASE Negative (Negative); NITRITE Negative (Negative); PH 5.5 (4.5-8.0); SPECIFIC GRAVITY >= 1.030 (1.001-1.030); UROBILINOGEN 0.2 E.U./dl (0.0-1.0)
[2025-05-07 23:17] VITALS: BP 176/85
[2025-05-07 23:37] LABS: EPITHELIAL CELLS 21-30
[2025-05-08] MEDS ORDERED: Ondansetron Hydrochloride 4 MG/2 ML VIAL IV PRN (03:00)
[2025-05-08] MEDS ORDERED: Magnesium Hydroxide 30 ML UDC PO PRN (03:00)
[2025-05-08] MEDS ORDERED: ACETAMINOPHEN 650 MG SUPP R PRN (03:00)
[2025-05-08] MEDS ORDERED: BISACODYL 5 MG TAB PO PRN (03:00)
[2025-05-08] MEDS ORDERED: BISACODYL 10 MG SUPP R PRN (03:00)
[2025-05-08] MEDS ORDERED: ACETAMINOPHEN 325 MG TAB PO PRN (03:00)
[2025-05-08 03:05] VITALS: BP 136/77
[2025-05-08] MEDS ORDERED: Meclizine Hydrochloride 12.5 MG TAB PO PRN (03:15)
[2025-05-08 05:58] LABS: HEMATOCRIT 38.9 % (37.0-47.0); MEAN CELL VOLUME 82.4 fl (81.0-99.0); MEAN CORPUSCULAR HGB 25.4 pg (27.0-31.0); MEAN CORPUSCULAR HGB CONC 30.8 g/dl (33.0-37.0); PLATELET COUNT AUTOMATED 247 10*3/uL (130-400); RED BLOOD COUNT 4.72 10*6/uL (4.10-5.10); RED CELL DISTRI WIDTH 15.3 % (0-14.5); WHITE BLOOD COUNT 14.1 10*3/uL (4.8-10.8)
[2025-05-08 06:07] LABS: MANUAL DIFF REFLEX YES
[2025-05-08 06:28] VITALS: BP 133/76
[2025-05-08 06:35] LABS: ATYPICAL LYMPHS 1 % (0-0); TOTAL CELLS COUNTED 100 #CELLS
[2025-05-08 06:36] LABS: PLATELET SUFFICIENCY NORMAL (NORMAL)
[2025-05-08 06:37] LABS: OVALOCYTES FEW; POLYCHROMASIA SLIGHT
[2025-05-08 07:03] LABS: ALKALINE PHOSPHATASE 111 U/L (46-116); BUN 14 mg/dl (9-23); CHLORIDE 101 mmol/L (98-107); CHOLESTEROL 180 mg/dL (<200); FREE T4 1.63 ng/dl (0.89-1.76); LDL CHOLESTEROL 91 mg/dL (9-159); POTASSIUM 3.4 mmol/L (3.4-5.1); SGPT/ALT 49 U/L (5-49); TOTAL PROTEIN 6.1 gm/dL (6.0-8.0); TRIGLYCERIDES 242 mg/dl (<150)
[2025-05-08] MEDS ORDERED: DEXTROSE 50% 25 GM/50 ML VIAL IV PRN (07:35)
[2025-05-08 08:00] VITALS: BP 129/71
[2025-05-08] MEDS ORDERED: ASPIRIN, CHEWABLE 81 MG TAB PO SCH (10:00)
[2025-05-08] MEDS ORDERED: LISINOPRIL 20 MG TAB PO SCH (10:00)
[2025-05-08] MEDS ORDERED: METOPROLOL SUCCINATE XR 100 MG TAB PO SCH (10:00)
[2025-05-08] MEDS ORDERED: Enoxaparin Sodium 40 MG/0.4 ML SYR SC SCH (10:00)
[2025-05-08] MEDS ORDERED: Ampicillin Sodium/Sulbactam 3 GM in SODIUM CHLORIDE 0.9% 100 ML IV SCH (10:00)
[2025-05-08] MEDS ORDERED: ALLOPURINOL 300 MG TAB PO SCH (10:00)
[2025-05-08] MEDS ORDERED: AMOXICILLIN875 MG PO (11:03)
[2025-05-08] MEDS ORDERED: INSULIN LISPRO 1 UNIT/0.01 ML SQ SCH (11:30)
[2025-05-08] MEDS ORDERED: Ondansetron4 MG PO (13:33)
[2025-05-08] MEDS ORDERED: MECLIZINE HYD12.5 MG PO (13:33)
[2025-05-08] MEDS ORDERED: metFORMIN Hydrochloride 500 MG TAB PO SCH (16:30)
[2025-05-08] MEDS ORDERED: OMEPRAZOLE 20 MG CAP PO SCH (22:00)
[2025-05-08] MEDS ORDERED: Amitriptyline Hydrochloride 50 MG TAB PO SCH (22:00)
[2025-05-08] MEDS ORDERED: LORATADINE 10 MG TAB PO SCH (22:00)
[2025-05-08] MEDS ORDERED: ATORVASTATIN CALCIUM 10 MG TAB PO SCH (22:00)
[2025-05-09] MEDS ORDERED: Insulin Glargine, Recombinan 1 UNIT/0.01 ML SC SCH (07:30)
== END 2025-05-08 15:50 | disposition home or self-care (01) | DRG 74 ==
LOC: ED 16:10 → EDHOLD 05-08 00:09
PROVIDERS: Nurse Practitioner Family; ADMIT Internal Medicine; ATTEND Internal Medicine
DX: G90.89 Other disorders of autonomic nervous system (principal); E66.9 Obesity, unspecified; M10.9 Gout, unspecified; I10 Essential (primary) hypertension; N06.9 Isolated proteinuria with unspecified morphologic lesion; E78.2 Mixed hyperlipidemia; E11.65 Type 2 diabetes mellitus with hyperglycemia; E11.42 Type 2 diabetes mellitus with diabetic polyneuropathy; Z90.710 Acquired absence of both cervix and uterus; Z82.49 Family history of ischemic heart disease and other diseases of the circulatory system; Z91.041 Radiographic dye allergy status; Z88.8 Allergy status to other drugs, medicaments and biological substances; Z79.899 Other long term (current) drug therapy; Z79.82 Long term (current) use of aspirin; Z79.84 Long term (current) use of oral hypoglycemic drugs

== ENCOUNTER → 2025-05-18 | Outpatient (CLI) | payer OTHER ==
[~2025-05-18] MED LIST changes: +AMOXICILLIN875 MG PO; +MECLIZINE HYD12.5 MG PO; +Ondansetron4 MG PO
== END ==
LOC: WOUNDCARE 01:35
PROVIDERS: ATTEND Nurse Practitioner Family
DX: E11.621 Type 2 diabetes mellitus with foot ulcer (principal); L97.522 Non-pressure chronic ulcer of other part of left foot with fat layer exposed; E11.40 Type 2 diabetes mellitus with diabetic neuropathy, unspecified; E11.610 Type 2 diabetes mellitus with diabetic neuropathic arthropathy; L60.2 Onychogryphosis; B35.1 Tinea unguium; I10 Essential (primary) hypertension; E78.00 Pure hypercholesterolemia, unspecified; M10.9 Gout, unspecified; Z90.710 Acquired absence of both cervix and uterus; Z98.890 Other specified postprocedural states; Z79.84 Long term (current) use of oral hypoglycemic drugs; Z79.82 Long term (current) use of aspirin; Z79.899 Other long term (current) drug therapy

== ENCOUNTER → 2025-05-30 | Outpatient (CLI) | payer OTHER | END | disposition home or self-care (01) | LOC: WOUNDCARE 02:24 | PROVIDERS: ATTEND Nurse Practitioner Family | DX: E11.621 Type 2 diabetes mellitus with foot ulcer (principal); L97.522 Non-pressure chronic ulcer of other part of left foot with fat layer exposed; L60.2 Onychogryphosis; B35.1 Tinea unguium; E11.40 Type 2 diabetes mellitus with diabetic neuropathy, unspecified; E11.610 Type 2 diabetes mellitus with diabetic neuropathic arthropathy; E78.00 Pure hypercholesterolemia, unspecified; I10 Essential (primary) hypertension; M10.9 Gout, unspecified; Z90.710 Acquired absence of both cervix and uterus; Z98.890 Other specified postprocedural states; Z79.84 Long term (current) use of oral hypoglycemic drugs; Z79.82 Long term (current) use of aspirin; Z79.899 Other long term (current) drug therapy ==

== ENCOUNTER → 2025-06-12 | Outpatient (CLI) | payer OTHER | END | disposition home or self-care (01) | LOC: CANPRECLI → WOUNDCARE 03:00 | PROVIDERS: ATTEND Nurse Practitioner Family | DX: E11.621 Type 2 diabetes mellitus with foot ulcer (principal); L97.522 Non-pressure chronic ulcer of other part of left foot with fat layer exposed; L84 Corns and callosities; L60.2 Onychogryphosis; E11.40 Type 2 diabetes mellitus with diabetic neuropathy, unspecified; E11.610 Type 2 diabetes mellitus with diabetic neuropathic arthropathy; B35.1 Tinea unguium; I10 Essential (primary) hypertension; E78.00 Pure hypercholesterolemia, unspecified; M10.9 Gout, unspecified; Z90.710 Acquired absence of both cervix and uterus ==

== ENCOUNTER → 2025-06-26 | Outpatient (CLI) | payer OTHER | END | disposition home or self-care (01) | LOC: WOUNDCARE 01:31 | PROVIDERS: ATTEND Nurse Practitioner Family | DX: E11.621 Type 2 diabetes mellitus with foot ulcer (principal); L97.522 Non-pressure chronic ulcer of other part of left foot with fat layer exposed; L84 Corns and callosities; E11.610 Type 2 diabetes mellitus with diabetic neuropathic arthropathy; E11.40 Type 2 diabetes mellitus with diabetic neuropathy, unspecified; I10 Essential (primary) hypertension; I48.92 Unspecified atrial flutter; E78.00 Pure hypercholesterolemia, unspecified; M10.9 Gout, unspecified; B35.1 Tinea unguium; L60.2 Onychogryphosis; Z90.710 Acquired absence of both cervix and uterus; Z90.49 Acquired absence of other specified parts of digestive tract; Z98.890 Other specified postprocedural states; Z79.84 Long term (current) use of oral hypoglycemic drugs; Z79.82 Long term (current) use of aspirin; Z79.899 Other long term (current) drug therapy ==

== ENCOUNTER 2025-07-02 22:29 | Emergency (ER) | payer OTHER ==
[2025-07-02] MEDS ORDERED: CEPHALEXIN 500 MG CAP PO ONE (23:25)
[2025-07-02] MEDS ORDERED: Tdap Vaccine 0.5 ML SYR (Adult Vaccine) IM ONE (23:25)
[2025-07-02] MEDS ORDERED: Lidocaine Hydrochloride 2% 10 ML AMP SC ONE (23:25)
[2025-07-02] MEDS ORDERED: Bacitracin Zinc 14 GM TUBE T ONE (23:25)
[2025-07-02] MEDS ORDERED: CEPHALEXIN500 M1 PO (23:36)
== END 2025-07-02 23:42 | disposition home or self-care (01) ==
LOC: ED 22:29
DX: S81.012A Laceration without foreign body, left knee, initial encounter (principal); S40.812A Abrasion of left upper arm, initial encounter; E11.40 Type 2 diabetes mellitus with diabetic neuropathy, unspecified; I10 Essential (primary) hypertension; M10.9 Gout, unspecified; E78.5 Hyperlipidemia, unspecified; E66.09 Other obesity due to excess calories; Z68.39 Body mass index [BMI] 39.0-39.9, adult; W19.XXXA Unspecified fall, initial encounter; Y93.89 Activity, other specified; Y92.89 Other specified places as the place of occurrence of the external cause; Y99.8 Other external cause status

== ENCOUNTER → 2025-07-11 | Outpatient (CLI) | payer OTHER | END | disposition home or self-care (01) | LOC: WOUNDCARE 03:07 | PROVIDERS: ATTEND Nurse Practitioner Family | DX: E11.621 Type 2 diabetes mellitus with foot ulcer (principal); L97.522 Non-pressure chronic ulcer of other part of left foot with fat layer exposed; S81.011A Laceration without foreign body, right knee, initial encounter; E11.40 Type 2 diabetes mellitus with diabetic neuropathy, unspecified; E11.610 Type 2 diabetes mellitus with diabetic neuropathic arthropathy; B35.1 Tinea unguium; L60.2 Onychogryphosis; I10 Essential (primary) hypertension; E78.00 Pure hypercholesterolemia, unspecified; M10.9 Gout, unspecified; Z90.710 Acquired absence of both cervix and uterus; Z98.890 Other specified postprocedural states; Z79.82 Long term (current) use of aspirin; Z79.84 Long term (current) use of oral hypoglycemic drugs; Z79.899 Other long term (current) drug therapy; X58.XXXA Exposure to other specified factors, initial encounter; Y93.89 Activity, other specified; Y92.89 Other specified places as the place of occurrence of the external cause; Y99.8 Other external cause status ==

== ENCOUNTER → 2025-07-13 | Outpatient (CLI) | payer OTHER | END | disposition home or self-care (01) | LOC: WOUNDCARE 03:39 | PROVIDERS: ATTEND Nurse Practitioner Family | DX: E11.621 Type 2 diabetes mellitus with foot ulcer (principal); L97.522 Non-pressure chronic ulcer of other part of left foot with fat layer exposed; S81.011D Laceration without foreign body, right knee, subsequent encounter; E11.40 Type 2 diabetes mellitus with diabetic neuropathy, unspecified; E11.610 Type 2 diabetes mellitus with diabetic neuropathic arthropathy; B35.1 Tinea unguium; L60.2 Onychogryphosis; I10 Essential (primary) hypertension; E78.00 Pure hypercholesterolemia, unspecified; M10.9 Gout, unspecified; Z90.710 Acquired absence of both cervix and uterus; Z98.890 Other specified postprocedural states; Z79.84 Long term (current) use of oral hypoglycemic drugs; Z79.82 Long term (current) use of aspirin; Z79.899 Other long term (current) drug therapy; X58.XXXD Exposure to other specified factors, subsequent encounter ==

== ENCOUNTER → 2025-07-24 | Outpatient (CLI) | payer OTHER | END | disposition home or self-care (01) | LOC: WOUNDCARE 03:43 | PROVIDERS: ATTEND Nurse Practitioner Family | DX: E11.621 Type 2 diabetes mellitus with foot ulcer (principal); L97.522 Non-pressure chronic ulcer of other part of left foot with fat layer exposed; S81.011D Laceration without foreign body, right knee, subsequent encounter; L60.2 Onychogryphosis; L84 Corns and callosities; B35.1 Tinea unguium; E11.40 Type 2 diabetes mellitus with diabetic neuropathy, unspecified; E11.610 Type 2 diabetes mellitus with diabetic neuropathic arthropathy; E78.00 Pure hypercholesterolemia, unspecified; I10 Essential (primary) hypertension; M10.9 Gout, unspecified; Z90.710 Acquired absence of both cervix and uterus; Z98.890 Other specified postprocedural states; Z79.84 Long term (current) use of oral hypoglycemic drugs; Z79.82 Long term (current) use of aspirin; Z79.899 Other long term (current) drug therapy; X58.XXXD Exposure to other specified factors, subsequent encounter ==

== ENCOUNTER → 2025-08-07 | Outpatient (CLI) | payer OTHER | END | disposition home or self-care (01) | LOC: WOUNDCARE 01:52 | PROVIDERS: ATTEND Nurse Practitioner Family | DX: E11.621 Type 2 diabetes mellitus with foot ulcer (principal); L97.522 Non-pressure chronic ulcer of other part of left foot with fat layer exposed; S81.011D Laceration without foreign body, right knee, subsequent encounter; L60.2 Onychogryphosis; B35.1 Tinea unguium; L84 Corns and callosities; E11.40 Type 2 diabetes mellitus with diabetic neuropathy, unspecified; E11.610 Type 2 diabetes mellitus with diabetic neuropathic arthropathy; E78.00 Pure hypercholesterolemia, unspecified; I10 Essential (primary) hypertension; M10.9 Gout, unspecified; Z90.710 Acquired absence of both cervix and uterus; Z98.890 Other specified postprocedural states; Z79.84 Long term (current) use of oral hypoglycemic drugs; Z79.82 Long term (current) use of aspirin; Z79.899 Other long term (current) drug therapy; X58.XXXD Exposure to other specified factors, subsequent encounter ==

== ENCOUNTER → 2025-09-05 | Outpatient (CLI) | payer OTHER | END | disposition home or self-care (01) | LOC: WOUNDCARE 02:10 | PROVIDERS: ATTEND Nurse Practitioner Family | DX: E11.621 Type 2 diabetes mellitus with foot ulcer (principal); L97.522 Non-pressure chronic ulcer of other part of left foot with fat layer exposed; S81.011D Laceration without foreign body, right knee, subsequent encounter; E11.40 Type 2 diabetes mellitus with diabetic neuropathy, unspecified; E11.610 Type 2 diabetes mellitus with diabetic neuropathic arthropathy; L60.2 Onychogryphosis; B35.1 Tinea unguium; I10 Essential (primary) hypertension; I48.91 Unspecified atrial fibrillation; M10.9 Gout, unspecified; E78.00 Pure hypercholesterolemia, unspecified; Z90.710 Acquired absence of both cervix and uterus; Z98.890 Other specified postprocedural states; Z79.82 Long term (current) use of aspirin; Z79.899 Other long term (current) drug therapy; X58.XXXD Exposure to other specified factors, subsequent encounter ==

== ENCOUNTER → 2025-09-19 | Outpatient (CLI) | payer OTHER | END | disposition home or self-care (01) | LOC: WOUNDCARE 03:48 | PROVIDERS: ATTEND Nurse Practitioner Family | DX: E11.621 Type 2 diabetes mellitus with foot ulcer (principal); L97.522 Non-pressure chronic ulcer of other part of left foot with fat layer exposed; S81.011D Laceration without foreign body, right knee, subsequent encounter; L60.2 Onychogryphosis; L84 Corns and callosities; E11.40 Type 2 diabetes mellitus with diabetic neuropathy, unspecified; E11.610 Type 2 diabetes mellitus with diabetic neuropathic arthropathy; B35.1 Tinea unguium; E78.00 Pure hypercholesterolemia, unspecified; I10 Essential (primary) hypertension; M10.9 Gout, unspecified; Z90.710 Acquired absence of both cervix and uterus; X58.XXXD Exposure to other specified factors, subsequent encounter ==

== ENCOUNTER → 2025-10-03 | Outpatient (CLI) | payer OTHER | END | disposition home or self-care (01) | LOC: WOUNDCARE 01:41 | PROVIDERS: ATTEND Nurse Practitioner Family | DX: E11.621 Type 2 diabetes mellitus with foot ulcer (principal); L97.522 Non-pressure chronic ulcer of other part of left foot with fat layer exposed; S81.011D Laceration without foreign body, right knee, subsequent encounter; E11.40 Type 2 diabetes mellitus with diabetic neuropathy, unspecified; E11.610 Type 2 diabetes mellitus with diabetic neuropathic arthropathy; B35.1 Tinea unguium; L60.2 Onychogryphosis; I10 Essential (primary) hypertension; E78.00 Pure hypercholesterolemia, unspecified; M10.9 Gout, unspecified; Z90.710 Acquired absence of both cervix and uterus; X58.XXXD Exposure to other specified factors, subsequent encounter ==

== ENCOUNTER → 2025-10-17 | Outpatient (CLI) | payer OTHER | END | disposition home or self-care (01) | LOC: WOUNDCARE 01:16 | PROVIDERS: ATTEND Nurse Practitioner Family | DX: E11.621 Type 2 diabetes mellitus with foot ulcer (principal); L97.522 Non-pressure chronic ulcer of other part of left foot with fat layer exposed; S81.011D Laceration without foreign body, right knee, subsequent encounter; E11.40 Type 2 diabetes mellitus with diabetic neuropathy, unspecified; E11.610 Type 2 diabetes mellitus with diabetic neuropathic arthropathy; L60.2 Onychogryphosis; B35.1 Tinea unguium; I10 Essential (primary) hypertension; E78.00 Pure hypercholesterolemia, unspecified; L84 Corns and callosities; M10.9 Gout, unspecified; Z90.710 Acquired absence of both cervix and uterus; X58.XXXD Exposure to other specified factors, subsequent encounter ==

== ENCOUNTER → 2025-10-31 | Outpatient (CLI) | payer OTHER | END | disposition home or self-care (01) | LOC: WOUNDCARE 02:40 | PROVIDERS: ATTEND Nurse Practitioner Family | DX: E11.621 Type 2 diabetes mellitus with foot ulcer (principal); L97.522 Non-pressure chronic ulcer of other part of left foot with fat layer exposed; L89.896 Pressure-induced deep tissue damage of other site; S81.011D Laceration without foreign body, right knee, subsequent encounter; L84 Corns and callosities; E11.40 Type 2 diabetes mellitus with diabetic neuropathy, unspecified; E11.610 Type 2 diabetes mellitus with diabetic neuropathic arthropathy; L60.2 Onychogryphosis; B35.1 Tinea unguium; I10 Essential (primary) hypertension; E78.00 Pure hypercholesterolemia, unspecified; M10.9 Gout, unspecified; Z90.710 Acquired absence of both cervix and uterus; X58.XXXD Exposure to other specified factors, subsequent encounter ==

== ENCOUNTER → 2025-11-05 | Outpatient (CLI) | payer OTHER | END | disposition home or self-care (01) | LOC: WOUNDCARE 12:04 | PROVIDERS: ATTEND Nurse Practitioner Family | DX: E11.621 Type 2 diabetes mellitus with foot ulcer (principal); L97.522 Non-pressure chronic ulcer of other part of left foot with fat layer exposed; L89.892 Pressure ulcer of other site, stage 2; S91.312D Laceration without foreign body, left foot, subsequent encounter; L03.116 Cellulitis of left lower limb; E11.610 Type 2 diabetes mellitus with diabetic neuropathic arthropathy; E11.40 Type 2 diabetes mellitus with diabetic neuropathy, unspecified; L60.2 Onychogryphosis; B35.1 Tinea unguium; I10 Essential (primary) hypertension; E78.00 Pure hypercholesterolemia, unspecified; M10.9 Gout, unspecified; Z90.710 Acquired absence of both cervix and uterus; X58.XXXD Exposure to other specified factors, subsequent encounter ==

== ENCOUNTER → 2025-11-14 | Outpatient (CLI) | payer OTHER | LOC: WOUNDCARE 00:44 | PROVIDERS: ATTEND Nurse Practitioner Family | DX: E11.621 Type 2 diabetes mellitus with foot ulcer (principal); L97.522 Non-pressure chronic ulcer of other part of left foot with fat layer exposed; L89.892 Pressure ulcer of other site, stage 2; S91.312D Laceration without foreign body, left foot, subsequent encounter; S91.105D Unspecified open wound of left lesser toe(s) without damage to nail, subsequent encounter; L84 Corns and callosities; E11.40 Type 2 diabetes mellitus with diabetic neuropathy, unspecified; E11.610 Type 2 diabetes mellitus with diabetic neuropathic arthropathy; B35.1 Tinea unguium; L60.2 Onychogryphosis; L03.90 Cellulitis, unspecified; I10 Essential (primary) hypertension; E78.00 Pure hypercholesterolemia, unspecified; M10.9 Gout, unspecified; Z90.710 Acquired absence of both cervix and uterus; I48.92 Unspecified atrial flutter; Z98.890 Other specified postprocedural states; Z79.84 Long term (current) use of oral hypoglycemic drugs; Z79.82 Long term (current) use of aspirin; Z79.899 Other long term (current) drug therapy; X58.XXXD Exposure to other specified factors, subsequent encounter ==

== ENCOUNTER → 2025-11-15 | Outpatient (CLI) | payer OTHER ==
[2025-11-15 11:45] LABS: BUN 11 mg/dl (9-23); LDL CHOLESTEROL 69 mg/dL (9-159); SGPT/ALT 60 U/L (5-49)
== END | disposition home or self-care (01) ==
LOC: LAB 10:28
PROVIDERS: ATTEND Internal Medicine Endocrinology, Diabetes & Metabolism
DX: E11.65 Type 2 diabetes mellitus with hyperglycemia (principal); E78.5 Hyperlipidemia, unspecified

== ENCOUNTER → 2025-11-26 | Outpatient (CLI) | payer OTHER | END | disposition home or self-care (01) | LOC: WOUNDCARE 02:11 | PROVIDERS: ATTEND Nurse Practitioner Family | DX: E11.621 Type 2 diabetes mellitus with foot ulcer (principal); L97.522 Non-pressure chronic ulcer of other part of left foot with fat layer exposed; L89.892 Pressure ulcer of other site, stage 2; S91.105D Unspecified open wound of left lesser toe(s) without damage to nail, subsequent encounter; S91.312D Laceration without foreign body, left foot, subsequent encounter; L03.116 Cellulitis of left lower limb; E11.40 Type 2 diabetes mellitus with diabetic neuropathy, unspecified; E11.610 Type 2 diabetes mellitus with diabetic neuropathic arthropathy; B35.1 Tinea unguium; L60.2 Onychogryphosis; M10.9 Gout, unspecified; I10 Essential (primary) hypertension; E78.00 Pure hypercholesterolemia, unspecified; Z90.710 Acquired absence of both cervix and uterus; X58.XXXD Exposure to other specified factors, subsequent encounter ==